=== PATIENT | female | born 1985 | race Caucasian/White ===

== ENCOUNTER 2018-07-31 13:46 | Inpatient (IN) | payer MEDICAID ==
--- NOTE | 2018-07-31 14:31 | EDM.PDOC ---
ED HPI GENERAL MEDICAL PROBLEM - General Chief Complaint: General Stated Complaint: UNK Time Seen by Provider: 07/31/18 14:26 Source of Information: Reports: Provider History Limitations: Reports: No Limitations - History of Present Illness INITIAL COMMENTS - FREE TEXT/NARRATIVE: HISTORY AND PHYSICAL: History of present illness: Patient is a 32-year-old nonverbal female here from [facility] for concern about her not wanting to ambulate. Caregiver states that this morning she got up and walked to breakfast and ate well but when she went to get her for lunch she would not walk at all. She denies any fall or trauma in the interim. She states that she usually eats all of her lunch but today only had a few bites. He did have a mild cough today but no fevers, vomiting, diarrhea. Caregiver states there has been some positive influenza cases in their home. She is not indicating any pain at this time. Review of systems: As per history of present illness and below otherwise all systems reviewed and negative. Past medical history: As per history of present illness and as reviewed below otherwise noncontributory. Surgical history: As per history of present illness and as reviewed below otherwise noncontributory. Social history: No reported history of drug or alcohol abuse. Family history: As per history of present illness and as reviewed below otherwise noncontributory. Physical exam: General: Patient sitting comfortably in no acute distress and nontoxic appearing HEENT: Atraumatic, normocephalic, pupils reactive, negative for conjunctival pallor or scleral icterus, mucous membranes moist, throat clear, neck supple, nontender, trachea midline. No meningeal signs. Lungs: Clear to auscultation, breath sounds equal bilaterally, chest nontender. Heart: S1S2, regular, negative for clicks, rubs, or overt murmur. Abdomen: Soft, nondistended, nontender. Negative for masses or hepatosplenomegaly. Negative for costovertebral tenderness. Pelvis: Stable nontender. Genitourinary: Deferred. Rectal: Deferred. Extremities: Atraumatic, negative for cords or calf pain. Neurovascular unremarkable. Neuro: Awake, alert, oriented. Cranial nerves II through XII unremarkable. Cerebellum unremarkable. Motor and sensory unremarkable throughout. Exam nonfocal. Notes: Diagnostics: CBC, CMP, CXR, influenza, CXR, lactate, blood culture x 2 Therapeutics: 1L Normal Saline IV 750mg Levaquin IV Prescriptions: Impression: Pneumonia Plan: Discussed with Dr. Story, patient will be admitted to inpatient for pneumonia and follow up on blood cultures to r/o sepsis. Definitive disposition and diagnosis as appropriate pending reevaluation and review of above. 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 ED EXAM, GENERAL - Physical Exam Exam: See Below (see dictation) Course - Vital Signs Last Recorded V/S: Last Vital Signs Temp 98.4 F 07/31/18 16:03 Pulse 113 H 07/31/18 16:03 Resp 16 07/31/18 16:03 BP 144/85 H 07/31/18 16:03 Pulse Ox 96 07/31/18 16:03 - Orders/Labs/Meds Orders: Active Orders 24 hr Category Date Time Status Urinary Catheter Assessment [RC] ASDIRECTED Care 07/31/18 15:47 Active Urinary Catheter Insertion [Insert Urinary Catheter] [ Care 07/31/18 15:30 Ordered OM.PC] Stat CULTURE BLOOD [BC] Stat Lab 07/31/18 15:40 Received CULTURE BLOOD [BC] Stat Lab 07/31/18 15:57 Received Levofloxacin/Dextrose 5%-Water [Levaquin in D5W 750 MG/ Med 07/31/18 16:08 Ordered 150 ML] 750 mg Premix Bag 1 bag IV ONETIME Sodium Chloride 0.9% [Normal Saline] 1,000 ml Med 07/31/18 16:08 Ordered IV STAT Blood Culture x2 Reflex Set [OM.PC] Stat Oth 07/31/18 15:09 Ordered Medication Orders Levofloxacin/Dextrose 750 mg/ (Premix) 150 mls @ 100 mls/hr IV ONETIME ONE Stop: 07/31/18 17:37 Sodium Chloride (Normal Saline) 1,000 mls @ 999 mls/hr IV STAT ONE Stop: 07/31/18 17:08 Labs: Laboratory Tests 07/31/18 07/31/18 07/31/18 Range/Units 13:30 14:46 14:46 WBC 20.88 H (4.0-11.0) K/uL RBC 5.02 (4.30-5.90) M/uL Hgb 14.9 (12.0-16.0) g/dL Hct 44.4 (36.0-46.0) % MCV 88.4 (80.0-98.0) fL MCH 29.7 (27.0-32.0) pg MCHC 33.6 (31.0-37.0) g/dL RDW Std Deviation 43.5 (28.0-62.0) fl RDW Coeff of Frank 13 (11.0-15.0) % Plt Count 267 (150-400) K/uL MPV 9.60 (7.40-12.00) fL Neut % (Auto) 88.0 H (48.0-80.0) % Lymph % (Auto) 6.4 L (16.0-40.0) % [place] % (Auto) 5.5 (0.0-15.0) % Eos % (Auto) 0.0 (0.0-7.0) % Baso % (Auto) 0.1 (0.0-1.5) % Neut # (Auto) 18.4 H (1.4-5.7) K/uL Lymph # (Auto) 1.3 (0.6-2.4) K/uL [place] # (Auto) 1.1 H (0.0-0.8) K/uL Eos # (Auto) 0.0 (0.0-0.7) K/uL Baso # (Auto) 0.0 (0.0-0.1) K/uL Nucleated RBC % 0.0 /100WBC Nucleated RBCs # 0 K/uL Lactate (0.20-2.00) mmol/L Sodium 139 (136-145) mmol/L Potassium 3.8 (3.5-5.1) mmol/L Chloride 103 (98-107) mmol/L Carbon Dioxide 24.6 (21.0-32.0) mmol/L BUN 10 (7.0-18.0) mg/dL Creatinine 0.7 (0.6-1.0) mg/dL Est Cr Clr Drug Dosing TNP Estimated GFR (MDRD) > 60.0 ml/min Glucose 136 H (74-106) mg/dL Calcium 9.4 (8.5-10.1) mg/dL Total Bilirubin 0.5 (0.2-1.0) mg/dL AST 20 (15-37) IU/L ALT 29 (14-63) IU/L Alkaline Phosphatase 60 (46-116) U/L Total Protein 7.5 (6.4-8.2) g/dL Albumin 3.4 (3.4-5.0) g/dL Globulin 4.1 H (2.6-4.0) g/dL Albumin/Globulin Ratio 0.8 L (0.9-1.6) Urine Color YELLOW Urine Appearance CLEAR Urine pH 6.0 (5.0-8.0) Ur Specific [place] 1.015 (1.001-1.035) Urine Protein NEGATIVE (NEGATIVE) mg/dL Urine Glucose (UA) NEGATIVE (NEGATIVE) mg/dL Urine Ketones NEGATIVE (NEGATIVE) mg/dL Urine Occult Blood SMALL H (NEGATIVE) Urine Nitrite NEGATIVE (NEGATIVE) Urine Bilirubin NEGATIVE (NEGATIVE) Urine Urobilinogen 0.2 (<2.0) EU/dL Ur Leukocyte Esterase NEGATIVE (NEGATIVE) Urine RBC 2-5 (0-2/HPF) Urine WBC 0-1 (0-5/HPF) Ur Epithelial Cells OCCASIONAL (NONE-FEW) Urine Bacteria FEW (NEGATIVE) 07/31/18 Range/Units 15:40 WBC (4.0-11.0) K/uL RBC (4.30-5.90) M/uL Hgb (12.0-16.0) g/dL Hct (36.0-46.0) % MCV (80.0-98.0) fL MCH (27.0-32.0) pg MCHC (31.0-37.0) g/dL RDW Std Deviation (28.0-62.0) fl RDW Coeff of Frank (11.0-15.0) % Plt Count (150-400) K/uL MPV (7.40-12.00) fL Neut % (Auto) (48.0-80.0) % Lymph % (Auto) (16.0-40.0) % [place] % (Auto) (0.0-15.0) % Eos % (Auto) (0.0-7.0) % Baso % (Auto) (0.0-1.5) % Neut # (Auto) (1.4-5.7) K/uL Lymph # (Auto) (0.6-2.4) K/uL [place] # (Auto) (0.0-0.8) K/uL Eos # (Auto) (0.0-0.7) K/uL Baso # (Auto) (0.0-0.1) K/uL Nucleated RBC % /100WBC Nucleated RBCs # K/uL Lactate 2.1 H (0.20-2.00) mmol/L Sodium (136-145) mmol/L Potassium (3.5-5.1) mmol/L Chloride (98-107) mmol/L Carbon Dioxide (21.0-32.0) mmol/L BUN (7.0-18.0) mg/dL Creatinine (0.6-1.0) mg/dL Est Cr Clr Drug Dosing Estimated GFR (MDRD) ml/min Glucose (74-106) mg/dL Calcium (8.5-10.1) mg/dL Total Bilirubin (0.2-1.0) mg/dL AST (15-37) IU/L ALT (14-63) IU/L Alkaline Phosphatase (46-116) U/L Total Protein (6.4-8.2) g/dL Albumin (3.4-5.0) g/dL Globulin (2.6-4.0) g/dL Albumin/Globulin Ratio (0.9-1.6) Urine Color Urine Appearance Urine pH (5.0-8.0) Ur Specific [place] (1.001-1.035) Urine Protein (NEGATIVE) mg/dL Urine Glucose (UA) (NEGATIVE) mg/dL Urine Ketones (NEGATIVE) mg/dL Urine Occult Blood (NEGATIVE) Urine Nitrite (NEGATIVE) Urine Bilirubin (NEGATIVE) Urine Urobilinogen (<2.0) EU/dL Ur Leukocyte Esterase (NEGATIVE) Urine RBC (0-2/HPF) Urine WBC (0-5/HPF) Ur Epithelial Cells (NONE-FEW) Urine Bacteria (NEGATIVE) Meds: Medications Generic Name Dose Route Start Last Admin Trade Name Freq PRN Reason Stop Dose Admin Levofloxacin/Dextrose 750 mg/ 150 mls @ 100 mls/hr 07/31/18 16:08 Premix IV 07/31/18 17:37 ONETIME ONE Sodium Chloride 1,000 mls @ 999 mls/hr 07/31/18 16:08 Normal Saline IV 07/31/18 17:08 STAT ONE Departure - Departure Time of Disposition: 16:12 Disposition: Home, Self-Care 01 Condition: Good Clinical Impression: Pneumonia - Discharge Information Referrals: PCP,Unknown [Primary Care Provider] - Forms: ED Department Discharge - My Orders Last 24 Hours: My Active Orders 07/31/18 15:09 Blood Culture x2 Reflex Set [OM.PC] Stat 07/31/18 15:30 Urinary Catheter Insertion [Insert Urinary Catheter] [OM.PC] Stat 07/31/18 15:40 CULTURE BLOOD [BC] Stat 07/31/18 15:47 Urinary Catheter Assessment [RC] ASDIRECTED 07/31/18 15:57 CULTURE BLOOD [BC] Stat 07/31/18 16:08 Levofloxacin/Dextrose 5%-Water [Levaquin in D5W 750 MG/150 ML] 750 mg Premix Bag 1 bag IV ONETIME Sodium Chloride 0.9% [Normal Saline] 1,000 ml IV STAT - Assessment/Plan Last 24 Hours: My Active Orders 07/31/18 15:09 Blood Culture x2 Reflex Set [OM.PC] Stat 07/31/18 15:30 Urinary Catheter Insertion [Insert Urinary Catheter] [OM.PC] Stat 07/31/18 15:40 CULTURE BLOOD [BC] Stat 07/31/18 15:47 Urinary Catheter Assessment [RC] ASDIRECTED 07/31/18 15:57 CULTURE BLOOD [BC] Stat 07/31/18 16:08 Levofloxacin/Dextrose 5%-Water [Levaquin in D5W 750 MG/150 ML] 750 mg Premix Bag 1 bag IV ONETIME Sodium Chloride 0.9% [Normal Saline] 1,000 ml IV STAT
--- NOTE | 2018-07-31 15:24 | CR ---
EXAMINATION: Portable chest radiograph. HISTORY: Shortness breath. FINDINGS: The trachea is midline. The cardiomediastinal silhouette is within normal limits. Mild left basilar atelectasis and/or infiltrate. No pleural effusion or pneumothorax. Osseous structures appear unremarkable. IMPRESSION: Mild left basilar atelectasis and/or infiltrate.
[2018-07-31 15:26] LABS: CHLORIDE,CL 103 mmol/L (98-107); SODIUM,NA 139 mmol/L (136-145)
[2018-07-31] MEDS ORDERED: Sodium Chloride 0.9% 1,000 ML IV ONE (16:08)
[2018-07-31] MEDS ORDERED: Levofloxacin/Dextrose 5%-Water 750 MG in Premix Bag 1 BAG IV ONE (16:08)
--- NOTE | 2018-07-31 16:46 | PCM.HP ---
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 This is out of her normal. They also noticed a cough today. No fevers and no indications of pain at all. In the ED leukocytosis of 20,000 was noted with a lactate of 2.1. Tachycardia noted. No hypoxia or hypotension noted. CXR revealed mild left basilar atelectasis and or infiltrate. She was given Levaquin 750 IV and NS 1 L bolus. She will be admitted inpatient for CAP. PCP, Pooja Delgado, [employer] - Related Data Allergies/Adverse Reactions: Allergies Allergy/AdvReac Type Severity Reaction Status Date / Time No Known Allergies Allergy Verified 07/29/14 15:18 Home Medications: Home Meds Ca Carbonate/Vitamin D3/Vit K [Calcium + D Soft Chewable Tab] 1 tab PO DAILY [History] l-Norgest/E.estradion-E.estrad [Daysee 0.15-0.03-0.01 mg Tab] 1 tab PO DAILY [History] Past Medical History HEENT History: Reports: Impaired Vision Cardiovascular History: Reports: None. Denies: CAD, Hypertension, RI Respiratory History: Reports: None. 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 (See Below) Other OB/BYN History: menorrhagia Neurological History: Reports: Seizure Psychiatric History: Reports: Autism, Developmental Delay, Mood Swings - Past Surgical History HEENT Surgical History: Reports: Oral Surgery Social & Family History - Family History Family Medical History: Noncontributory - Tobacco Use Second Hand Smoke Exposure: No - Caffeine Use Caffeine Use: Reports: None - Recreational Drug Use Recreational Drug Use: No - Living Situation & Occupation Living situation: Reports: Extended Care Facility H&P Review of Systems - Review of Systems: Review Of Systems: ROS reveals no pertinent complaints other than HPI. (Given per cargiver) Exam - Exam Exam: See Below - Vital Signs Vital Signs: Last Vital Signs Temp 98.4 F 07/31/18 16:03 Pulse 113 H 07/31/18 16:03 Resp 16 07/31/18 16:03 BP 144/85 H 07/31/18 16:03 Pulse Ox 96 07/31/18 16:03 - Exam Quality Assessment: No: Supplemental Oxygen General: Alert, Cooperative, Other (Non verbal.) HEENT: Conjunctiva Clear, Mucosa Moist & [place], Pupils Reactive Neck: Supple Lungs: Normal Respiratory Effort, Decreased Breath Sounds Cardiovascular: Regular Rate, Regular Rhythm, Normal S1, Normal S2 GI/Abdominal Exam: Normal Bowel Sounds, Soft, Non-Tender, No Organomegaly Extremities: Normal Inspection, Normal Range of Motion, Non-Tender, No Pedal Edema Neuro Extensive - Mental Status: Alert, Normal Mood/Affect Psychiatric: Alert, Normal Affect, Normal Mood - Patient Data Lab Results Last 24 hrs: Laboratory Results - last 24 hr 07/31/18 07/31/18 07/31/18 Range/Units 13:30 14:46 14:46 WBC 20.88 H (4.0-11.0) K/uL RBC 5.02 (4.30-5.90) M/uL Hgb 14.9 (12.0-16.0) g/dL Hct 44.4 (36.0-46.0) % MCV 88.4 (80.0-98.0) fL MCH 29.7 (27.0-32.0) pg MCHC 33.6 (31.0-37.0) g/dL RDW Std Deviation 43.5 (28.0-62.0) fl RDW Coeff of Frank 13 (11.0-15.0) % Plt Count 267 (150-400) K/uL MPV 9.60 (7.40-12.00) fL Neut % (Auto) 88.0 H (48.0-80.0) % Lymph % (Auto) 6.4 L (16.0-40.0) % [place] % (Auto) 5.5 (0.0-15.0) % Eos % (Auto) 0.0 (0.0-7.0) % Baso % (Auto) 0.1 (0.0-1.5) % Neut # (Auto) 18.4 H (1.4-5.7) K/uL Lymph # (Auto) 1.3 (0.6-2.4) K/uL [place] # (Auto) 1.1 H (0.0-0.8) K/uL Eos # (Auto) 0.0 (0.0-0.7) K/uL Baso # (Auto) 0.0 (0.0-0.1) K/uL Nucleated RBC % 0.0 /100WBC Nucleated RBCs # 0 K/uL Lactate (0.20-2.00) mmol/L Sodium 139 (136-145) mmol/L Potassium 3.8 (3.5-5.1) mmol/L Chloride 103 (98-107) mmol/L Carbon Dioxide 24.6 (21.0-32.0) mmol/L BUN 10 (7.0-18.0) mg/dL Creatinine 0.7 (0.6-1.0) mg/dL Est Cr Clr Drug Dosing TNP Estimated GFR (MDRD) > 60.0 ml/min Glucose 136 H (74-106) mg/dL Calcium 9.4 (8.5-10.1) mg/dL Total Bilirubin 0.5 (0.2-1.0) mg/dL AST 20 (15-37) IU/L ALT 29 (14-63) IU/L Alkaline Phosphatase 60 (46-116) U/L Total Protein 7.5 (6.4-8.2) g/dL Albumin 3.4 (3.4-5.0) g/dL Globulin 4.1 H (2.6-4.0) g/dL Albumin/Globulin Ratio 0.8 L (0.9-1.6) Urine Color YELLOW Urine Appearance CLEAR Urine pH 6.0 (5.0-8.0) Ur Specific [place] 1.015 (1.001-1.035) Urine Protein NEGATIVE (NEGATIVE) mg/dL Urine Glucose (UA) NEGATIVE (NEGATIVE) mg/dL Urine Ketones NEGATIVE (NEGATIVE) mg/dL Urine Occult Blood SMALL H (NEGATIVE) Urine Nitrite NEGATIVE (NEGATIVE) Urine Bilirubin NEGATIVE (NEGATIVE) Urine Urobilinogen 0.2 (<2.0) EU/dL Ur Leukocyte Esterase NEGATIVE (NEGATIVE) Urine RBC 2-5 (0-2/HPF) Urine WBC 0-1 (0-5/HPF) Ur Epithelial Cells OCCASIONAL (NONE-FEW) Urine Bacteria FEW (NEGATIVE) 07/31/18 Range/Units 15:40 WBC (4.0-11.0) K/uL RBC (4.30-5.90) M/uL Hgb (12.0-16.0) g/dL Hct (36.0-46.0) % MCV (80.0-98.0) fL MCH (27.0-32.0) pg MCHC (31.0-37.0) g/dL RDW Std Deviation (28.0-62.0) fl RDW Coeff of Frank (11.0-15.0) % Plt Count (150-400) K/uL MPV (7.40-12.00) fL Neut % (Auto) (48.0-80.0) % Lymph % (Auto) (16.0-40.0) % [place] % (Auto) (0.0-15.0) % Eos % (Auto) (0.0-7.0) % Baso % (Auto) (0.0-1.5) % Neut # (Auto) (1.4-5.7) K/uL Lymph # (Auto) (0.6-2.4) K/uL [place] # (Auto) (0.0-0.8) K/uL Eos # (Auto) (0.0-0.7) K/uL Baso # (Auto) (0.0-0.1) K/uL Nucleated RBC % /100WBC Nucleated RBCs # K/uL Lactate 2.1 H (0.20-2.00) mmol/L Sodium (136-145) mmol/L Potassium (3.5-5.1) mmol/L Chloride (98-107) mmol/L Carbon Dioxide (21.0-32.0) mmol/L BUN (7.0-18.0) mg/dL Creatinine (0.6-1.0) mg/dL Est Cr Clr Drug Dosing Estimated GFR (MDRD) ml/min Glucose (74-106) mg/dL Calcium (8.5-10.1) mg/dL Total Bilirubin (0.2-1.0) mg/dL AST (15-37) IU/L ALT (14-63) IU/L Alkaline Phosphatase (46-116) U/L Total Protein (6.4-8.2) g/dL Albumin (3.4-5.0) g/dL Globulin (2.6-4.0) g/dL Albumin/Globulin Ratio (0.9-1.6) Urine Color Urine Appearance Urine pH (5.0-8.0) Ur Specific [place] (1.001-1.035) Urine Protein (NEGATIVE) mg/dL Urine Glucose (UA) (NEGATIVE) mg/dL Urine Ketones (NEGATIVE) mg/dL Urine Occult Blood (NEGATIVE) Urine Nitrite (NEGATIVE) Urine Bilirubin (NEGATIVE) Urine Urobilinogen (<2.0) EU/dL Ur Leukocyte Esterase (NEGATIVE) Urine RBC (0-2/HPF) Urine WBC (0-5/HPF) Ur Epithelial Cells (NONE-FEW) Urine Bacteria (NEGATIVE) Result Diagrams: 07/31/18 14:46 07/31/18 14:46 Ryan Results Last 24 hrs: Microbiology 07/31/18 14:42 Influenza Type A Antigen Screen - Final Nasopharyngeal Swab NEGATIVE INFLUENZA A VIRUS AG Influenza Type B Antigen Screen - Final NEGATIVE INFLUENZA B VIRUS AG - Problem List (1) Community acquired bacterial pneumonia SNOMED Code(s): 785524747, 486143177 ICD Code: J15.9 - UNSPECIFIED BACTERIAL PNEUMONIA Status: Acute Current Visit: Yes (2) Seizure disorder SNOMED Code(s): 278081131 ICD Code: G40.909 - EPILEPSY, UNSP, NOT INTRACTABLE, WITHOUT STATUS EPILEPTICUS Status: Chronic Current Visit: Yes (3) Autism SNOMED Code(s): 527420075 ICD Code: F84.0 - AUTISTIC DISORDER Status: Chronic Current Visit: Yes (4) Cerebral palsy SNOMED Code(s): 165231292 ICD Code: G80.9 - CEREBRAL PALSY, UNSPECIFIED Status: Chronic Current Visit: Yes Problem List Initiated/Reviewed/Updated: Yes Orders Last 24hrs: Active Orders 24 hr Category Date Time Status Admission Status [Patient Status] [ADT] Stat ADT 07/31/18 16:13 Active Urinary Catheter Assessment [RC] ASDIRECTED Care 07/31/18 15:47 Active Urinary Catheter Insertion [Insert Urinary Catheter] [ Care 07/31/18 15:30 Ordered OM.PC] Stat CULTURE BLOOD [BC] Stat Lab 07/31/18 15:40 Received CULTURE BLOOD [BC] Stat Lab 07/31/18 15:57 Received Levofloxacin/Dextrose 5%-Water [Levaquin in D5W 750 MG/ Med 07/31/18 16:08 Active 150 ML] 750 mg Premix Bag 1 bag IV ONETIME Sodium Chloride 0.9% [Normal Saline] 1,000 ml Med 07/31/18 16:08 Active IV STAT Blood Culture x2 Reflex Set [OM.PC] Stat Oth 07/31/18 15:09 Ordered Medication Orders Levofloxacin/Dextrose 750 mg/ (Premix) 150 mls @ 100 mls/hr IV ONETIME ONE Stop: 07/31/18 17:37 Sodium Chloride (Normal Saline) 1,000 mls @ 999 mls/hr IV STAT ONE Stop: 07/31/18 17:08 Assessment/Plan Comment:: This 32 year old female admitted for community acquired pneumonia 1. CAP: Will start Levaquin 750 mg IV daily, Continue IVFs due to elevated lactic acid and poor appetite. Re-evaluate in am. BC and sputum culture pending. Sputum may be hard to acquire due to mental capability of patient. Caregiver denies productive cough. Monitor labwork in am. VTE prophylaxis: SCDs Dispo: 2-3 days pending improvement Contacts: [facility]: [phone] Twan Parnell [phone] Dad: Lucian Bravo [phone]
[2018-07-31] MEDS ORDERED: Sodium Chloride 0.9% 2.5 ML Syringe FLUSH PRN (16:56)
[2018-07-31] MEDS ORDERED: Acetaminophen 325 MG Tab PO PRN (16:56)
[2018-07-31] MEDS ORDERED: Ondansetron 4 MG/2 ML SDV IVPUSH PRN (16:56)
[2018-07-31] MEDS ORDERED: Albuterol 0.083% 2.5 MG/3 ML Neb Soln NEB PRN (16:56)
--- NOTE | 2018-07-31 17:59 | PCM.SN ---
- Free Text/Narrative Note: Called to the ER for PIV as nursing has been unsuccessful. 2 attempts to left AC and 1 attempt to Lt hand were unsuccessful bu me. 22g PIV was started to Rt wrist, draws blood and flushes with ease. Secured with tape and tegaderm. Pt tolerated placement well.
[2018-07-31] MEDS: Sodium Chloride 0.9% 1,000 ML IV SCH (19:20)
[2018-08-01] MEDS: Sodium Chloride 0.9% 1,000 ML IV SCH ×2 (02:31→09:50)
[2018-08-01] MEDS ORDERED: Calcium Carbonate/Vitamin D3 1500 MG-400 Units Tab PO SCH (09:00)
[2018-08-01] MEDS ORDERED: DAYSEE PO SCH (09:00)
[2018-08-01 09:30] LABS: CHLORIDE,CL 103 mmol/L (98-107); SODIUM,NA 135 mmol/L (136-145)
--- NOTE | 2018-08-01 10:57 | PCM.DCSUM1 ---
Discharge Summary - Hospital Course Brief History: This 32 year old female with pmh of moderate mental retardation, Austism, CP and seizure disorder, who is non verbal presented with a dog day care attendant from [facility], [place], she started her day out normal, but then was noted to have difficulty walking and did not want to eat her lunch. This is out of her normal. They also noticed a cough today. No fevers and no indications of pain at all. In the ED leukocytosis of 20,000 was noted with a lactate of 2.1. Tachycardia noted. No hypoxia or hypotension noted. CXR revealed mild left basilar atelectasis and or infiltrate. She was given Levaquin 750 IV and NS 1 L bolus. She will be admitted inpatient for CAP. PCP, Pooja Delgado NP Diagnosis: Stroke: No - Discharge Data Discharge Date: 08/01/18 Discharge Disposition: DC/Tfer to [facility] Condition: Stable - Discharge Diagnosis/Problem(s) (1) Community acquired bacterial pneumonia SNOMED Code(s): 144198256, 258206217 ICD Code: J15.9 - UNSPECIFIED BACTERIAL PNEUMONIA Status: Acute Current Visit: Yes (2) Seizure disorder SNOMED Code(s): 128441416 ICD Code: G40.909 - EPILEPSY, UNSP, NOT INTRACTABLE, WITHOUT STATUS EPILEPTICUS Status: Chronic Current Visit: Yes (3) Autism SNOMED Code(s): 132536004 ICD Code: F84.0 - AUTISTIC DISORDER Status: Chronic Current Visit: Yes (4) Cerebral palsy SNOMED Code(s): 757237750 ICD Code: G80.9 - CEREBRAL PALSY, UNSPECIFIED Status: Chronic Current Visit: Yes - Patient Summary/Data Consults: Consultations 08/01/18 09:17 Consult to Physical Therapy [PT Evaluation and Treatment] [CONS] Routine - Patient Instructions Diet: Usual Diet as Tolerated Activity: As Tolerated Showering/Bathing: May Shower Notify Provider of: Fever, Increased Pain, Swelling and Redness, Drainage, Nausea and/or Vomiting - Discharge Plan *PRESCRIPTION DRUG MONITORING PROGRAM REVIEWED*: Not Applicable *COPY OF PRESCRIPTION DRUG MONITORING REPORT IN PATIENT KYM: Not Applicable Prescriptions/Med Rec: levoFLOXacin [Levaquin] 750 mg PO DAILY #7 tab Home Medications: Home Meds Ca Carbonate/Vitamin D3/Vit K [Calcium + D Soft Chewable Tab] 1 tab PO DAILY 02/ 26/19 [History] l-Norgest/E.estradion-E.estrad [Daysee 0.15-0.03-0.01 mg Tab] 1 tab PO DAILY [History] levoFLOXacin [Levaquin] 750 mg PO DAILY #7 tab 08/01/18 [Rx] Patient Handouts: Community-Acquired Pneumonia, Adult, [id number] Referrals: Pooja Delgado, NIGHT [employer] MAGISTRATE [Nurse Practitioner] - 08/13/18 1:00 pm - Discharge Summary/Plan Comment DC Time >30 min.: No Discharge Summary/Plan Comment: Discharge Diagnoses: CAP Cerebal palsy Seizure disorder Non-verbal Mary was admitted with CAP and treated with Levaquin and IVFs for some dehydration. lactic acid was elevated initially, unable to check within 6 hours due to parental request to stop any more labwork last evening. This morning after IVF hydration, lactic acid was normal on 0.6. Leukocytosis improved to 11, 000. BMP WNL. She is alert and at baseline this morning. She ate breakfast well and was ambulating with PT independently and PT felt it was safe for her to return home. Her father, Lucian, requested discharge today due to his daughter potential behaviors and how she would rest better being back at the [facility] where she is used to her surroundings. She will be continued on Levaquin 750 mg daily for 7 more days for CAP. She is to follow up with PCP in 1 week. She is to return to clinic or ED if concerns should arise sooner. - General Info Date of Service: 08/01/18 Admission Dx/Problem (Free Text: Admission Diagnosis/Problem Admission Diagnosis/Problem Pneumonia Subjective Update: Sitting in bed, father at bedside. Reports she is acting more her normal self today. Requesting discharge home. Unable to obtain ROS, patient is non verbal. - Patient Data Vitals - Most Recent: Last Vital Signs Temp 98.5 F 08/01/18 07:10 Pulse 106 H 08/01/18 07:10 Resp 18 08/01/18 07:10 BP 134/100 H 08/01/18 07:10 Pulse Ox 95 08/01/18 07:10 Weight - Most Recent: 83.5 kg I&O - Last 24 hours: Intake & Output 07/31/18 08/01/1808/01/19 22:59 06:59 14:59 Intake Total 100 Balance 100 Lab Results - Last 24 hrs: Laboratory Results - last 24 hr 07/31/18 07/31/18 07/31/18 Range/Units 13:30 14:46 14:46 WBC 20.88 H (4.0-11.0) K/uL RBC 5.02 (4.30-5.90) M/uL Hgb 14.9 (12.0-16.0) g/dL Hct 44.4 (36.0-46.0) % MCV 88.4 (80.0-98.0) fL MCH 29.7 (27.0-32.0) pg MCHC 33.6 (31.0-37.0) g/dL RDW Std Deviation 43.5 (28.0-62.0) fl RDW Coeff of Frank 13 (11.0-15.0) % Plt Count 267 (150-400) K/uL MPV 9.60 (7.40-12.00) fL Neut % (Auto) 88.0 H (48.0-80.0) % Lymph % (Auto) 6.4 L (16.0-40.0) % [place] % (Auto) 5.5 (0.0-15.0) % Eos % (Auto) 0.0 (0.0-7.0) % Baso % (Auto) 0.1 (0.0-1.5) % Neut # (Auto) 18.4 H (1.4-5.7) K/uL Lymph # (Auto) 1.3 (0.6-2.4) K/uL [place] # (Auto) 1.1 H (0.0-0.8) K/uL Eos # (Auto) 0.0 (0.0-0.7) K/uL Baso # (Auto) 0.0 (0.0-0.1) K/uL Nucleated RBC % 0.0 /100WBC Nucleated RBCs # 0 K/uL Lactate (0.20-2.00) mmol/L Sodium 139 (136-145) mmol/L Potassium 3.8 (3.5-5.1) mmol/L Chloride 103 (98-107) mmol/L Carbon Dioxide 24.6 (21.0-32.0) mmol/L BUN 10 (7.0-18.0) mg/dL Creatinine 0.7 (0.6-1.0) mg/dL Est Cr Clr Drug Dosing TNP Estimated GFR (MDRD) > 60.0 ml/min Glucose 136 H (74-106) mg/dL Calcium 9.4 (8.5-10.1) mg/dL Total Bilirubin 0.5 (0.2-1.0) mg/dL AST 20 (15-37) IU/L ALT 29 (14-63) IU/L Alkaline Phosphatase 60 (46-116) U/L Total Protein 7.5 (6.4-8.2) g/dL Albumin 3.4 (3.4-5.0) g/dL Globulin 4.1 H (2.6-4.0) g/dL Albumin/Globulin Ratio 0.8 L (0.9-1.6) Urine Color YELLOW Urine Appearance CLEAR Urine pH 6.0 (5.0-8.0) Ur Specific Chandler 1.015 (1.001-1.035) Urine Protein NEGATIVE (NEGATIVE) mg/dL Urine Glucose (UA) NEGATIVE (NEGATIVE) mg/dL Urine Ketones NEGATIVE (NEGATIVE) mg/dL Urine Occult Blood SMALL H (NEGATIVE) Urine Nitrite NEGATIVE (NEGATIVE) Urine Bilirubin NEGATIVE (NEGATIVE) Urine Urobilinogen 0.2 (<2.0) EU/dL Ur Leukocyte Esterase NEGATIVE (NEGATIVE) Urine RBC 2-5 (0-2/HPF) Urine WBC 0-1 (0-5/HPF) Ur Epithelial Cells OCCASIONAL (NONE-FEW) Urine Bacteria FEW (NEGATIVE) 07/31/18 08/01/18 08/01/18 Range/Units 15:40 08:52 08:52 WBC 11.49 H (4.0-11.0) K/uL RBC 4.53 (4.30-5.90) M/uL Hgb 13.2 (12.0-16.0) g/dL Hct 40.0 (36.0-46.0) % MCV 88.3 (80.0-98.0) fL MCH 29.1 (27.0-32.0) pg MCHC 33.0 (31.0-37.0) g/dL RDW Std Deviation 42.4 (28.0-62.0) fl RDW Coeff of Frank 13 (11.0-15.0) % Plt Count 240 (150-400) K/uL MPV 9.50 (7.40-12.00) fL Neut % (Auto) 81.2 H (48.0-80.0) % Lymph % (Auto) 14.9 L (16.0-40.0) % [place] % (Auto) 3.7 (0.0-15.0) % Eos % (Auto) 0.0 (0.0-7.0) % Baso % (Auto) 0.2 (0.0-1.5) % Neut # (Auto) 9.3 H (1.4-5.7) K/uL Lymph # (Auto) 1.7 (0.6-2.4) K/uL [place] # (Auto) 0.4 (0.0-0.8) K/uL Eos # (Auto) 0.0 (0.0-0.7) K/uL Baso # (Auto) 0.0 (0.0-0.1) K/uL Nucleated RBC % 0.0 /100WBC Nucleated RBCs # 0 K/uL Lactate 2.1 H (0.20-2.00) mmol/L Sodium 135 L (136-145) mmol/L Potassium 3.6 (3.5-5.1) mmol/L Chloride 103 (98-107) mmol/L Carbon Dioxide 19.2 L (21.0-32.0) mmol/L BUN 5 L (7.0-18.0) mg/dL Creatinine 0.5 L (0.6-1.0) mg/dL Est Cr Clr Drug Dosing 154.17 Estimated GFR (MDRD) > 60.0 ml/min Glucose 79 (74-106) mg/dL Calcium 8.0 L (8.5-10.1) mg/dL Total Bilirubin (0.2-1.0) mg/dL AST (15-37) IU/L ALT (14-63) IU/L Alkaline Phosphatase (46-116) U/L Total Protein (6.4-8.2) g/dL Albumin (3.4-5.0) g/dL Globulin (2.6-4.0) g/dL Albumin/Globulin Ratio (0.9-1.6) Urine Color Urine Appearance Urine pH (5.0-8.0) Ur Specific Chandler (1.001-1.035) Urine Protein (NEGATIVE) mg/dL Urine Glucose (UA) (NEGATIVE) mg/dL Urine Ketones (NEGATIVE) mg/dL Urine Occult Blood (NEGATIVE) Urine Nitrite (NEGATIVE) Urine Bilirubin (NEGATIVE) Urine Urobilinogen (<2.0) EU/dL Ur Leukocyte Esterase (NEGATIVE) Urine RBC (0-2/HPF) Urine WBC (0-5/HPF) Ur Epithelial Cells (NONE-FEW) Urine Bacteria (NEGATIVE) 08/01/18 Range/Units 08:52 WBC (4.0-11.0) K/uL RBC (4.30-5.90) M/uL Hgb (12.0-16.0) g/dL Hct (36.0-46.0) % MCV (80.0-98.0) fL MCH (27.0-32.0) pg MCHC (31.0-37.0) g/dL RDW Std Deviation (28.0-62.0) fl RDW Coeff of Frank (11.0-15.0) % Plt Count (150-400) K/uL MPV (7.40-12.00) fL Neut % (Auto) (48.0-80.0) % Lymph % (Auto) (16.0-40.0) % [place] % (Auto) (0.0-15.0) % Eos % (Auto) (0.0-7.0) % Baso % (Auto) (0.0-1.5) % Neut # (Auto) (1.4-5.7) K/uL Lymph # (Auto) (0.6-2.4) K/uL [place] # (Auto) (0.0-0.8) K/uL Eos # (Auto) (0.0-0.7) K/uL Baso # (Auto) (0.0-0.1) K/uL Nucleated RBC % /100WBC Nucleated RBCs # K/uL Lactate 0.6 (0.20-2.00) mmol/L Sodium (136-145) mmol/L Potassium (3.5-5.1) mmol/L Chloride (98-107) mmol/L Carbon Dioxide (21.0-32.0) mmol/L BUN (7.0-18.0) mg/dL Creatinine (0.6-1.0) mg/dL Est Cr Clr Drug Dosing Estimated GFR (MDRD) ml/min Glucose (74-106) mg/dL Calcium (8.5-10.1) mg/dL Total Bilirubin (0.2-1.0) mg/dL AST (15-37) IU/L ALT (14-63) IU/L Alkaline Phosphatase (46-116) U/L Total Protein (6.4-8.2) g/dL Albumin (3.4-5.0) g/dL Globulin (2.6-4.0) g/dL Albumin/Globulin Ratio (0.9-1.6) Urine Color Urine Appearance Urine pH (5.0-8.0) Ur Specific Chandler (1.001-1.035) Urine Protein (NEGATIVE) mg/dL Urine Glucose (UA) (NEGATIVE) mg/dL Urine Ketones (NEGATIVE) mg/dL Urine Occult Blood (NEGATIVE) Urine Nitrite (NEGATIVE) Urine Bilirubin (NEGATIVE) Urine Urobilinogen (<2.0) EU/dL Ur Leukocyte Esterase (NEGATIVE) Urine RBC (0-2/HPF) Urine WBC (0-5/HPF) Ur Epithelial Cells (NONE-FEW) Urine Bacteria (NEGATIVE) NOBLE Results - Last 24 hrs: Microbiology 07/31/18 14:42 Influenza Type A Antigen Screen - Final Nasopharyngeal Swab NEGATIVE INFLUENZA A VIRUS AG Influenza Type B Antigen Screen - Final NEGATIVE INFLUENZA B VIRUS AG Med Orders - Current: Current Medications Acetaminophen (Tylenol) 650 mg PO Q4H PRN PRN Reason: Pain (mild 1-3) Albuterol (Proventil Neb Soln) 2.5 mg NEB Q2H PRN PRN Reason: Shortness Of Breath/wheezing Calcium Carbonate (Caltrate 600+D 1500 Mg-400 Units) 1 tab PO DAILY TI Last Admin: 08/01/18 08:19 Dose: 1 tab Levofloxacin/Dextrose 750 mg/ (Premix) 150 mls @ 100 mls/hr IV Q24H TI Sodium Chloride (Normal Saline) 1,000 mls @ 125 mls/hr IV ASDIRECTED TI Last Admin: 08/01/18 09:50 Dose: 125 mls/hr Ondansetron HCl (Zofran) 4 mg IVPUSH Q4H PRN PRN Reason: Nausea [Daysee 0.15-0.03-0. (01 Mg]) 1 each PO DAILY TI Last Admin: 08/01/18 08:19 Dose: Not Given Sodium Chloride (Saline Flush) 2.5 ml FLUSH ASDIRECTED PRN PRN Reason: Keep Vein Open Discontinued Medications Levofloxacin/Dextrose 750 mg/ (Premix) 150 mls @ 100 mls/hr IV ONETIME ONE Stop: 07/31/18 17:37 Last Admin: 07/31/18 17:09 Dose: 100 mls/hr Sodium Chloride (Normal Saline) 1,000 mls @ 999 mls/hr IV STAT ONE Stop: 07/31/18 17:08 Last Admin: 07/31/18 17:09 Dose: 999 mls/hr - Exam Quality Assessment: Denies: Supplemental Oxygen General: Reports: Alert, Cooperative, No Acute Distress Neck: Reports: Supple Lungs: Reports: Clear to Auscultation, Normal Respiratory Effort Cardiovascular: Reports: Regular Rate, Regular Rhythm GI/Abdominal Exam: Normal Bowel Sounds, Soft, Non-Tender, No Organomegaly, No Distention Extremities: Normal Inspection, Normal Range of Motion, Non-Tender, Pedal Edema (non pitting +1) Neurological: Reports: No New Focal Deficit Psy/Mental Status: Reports: Alert, Normal Affect, Normal Mood
[2018-08-01] MEDS ORDERED: Levofloxacin/Dextrose 5%-Water 750 MG in Premix Bag 1 BAG IV SCH (12:00)
== END 2018-08-01 13:10 | DRG 194 ==
LOC: MW.ED 13:46 → MW.MS 16:54
PROVIDERS: ADMIT Internal Medicine; ATTEND Internal Medicine
DX: J18.9 Pneumonia, unspecified organism (principal); J15.9 Unspecified bacterial pneumonia; F84.0 Autistic disorder; G80.9 Cerebral palsy, unspecified; G40.909 Epilepsy, unspecified, not intractable, without status epilepticus; R62.50 Unspecified lack of expected normal physiological development in childhood; F70 Mild intellectual disabilities; F39 Unspecified mood [affective] disorder; E86.0 Dehydration; R32 Unspecified urinary incontinence; K59.09 Other constipation; H54.7 Unspecified visual loss; Z79.899 Other long term (current) drug therapy
CPT/HCPCS: 36410; 36415; 71045; 71045-26; 80048; 80053; 81001; 83605; 85025; 87040; 87804; 96365; 97161-GP; 99285-25; A9270-GY; J1956; J7040

== ENCOUNTER 2019-06-10 18:47 | Emergency (ER) | payer MEDICAID ==
[2019-06-10] MEDS ORDERED: Rocuronium 100 MG/10 ML MDV ONE (18:48)
[2019-06-10] MEDS ORDERED: Albuterol/Ipratropium 3.0-0.5 MG/3 ML Neb Soln ONE (19:10)
[2019-06-10] MEDS ORDERED: LORazepam 2 MG/ML SDV ONE (19:13)
[2019-06-10] MEDS ORDERED: Midazolam 1 MG/ML 2 ML SDV ONE (19:18)
[2019-06-10] MEDS ORDERED: propofoL 100 ML ONE (19:25)
[2019-06-10] MEDS ORDERED: Midazolam 5 MG/ML SDV IVPUSH ONE (19:44)
[2019-06-10 19:51] LABS: BLOOD UREA NITROGEN,BUN 14 mg/dL (7.0-18.0); CARBON DIOXIDE,CO2 22.4 mmol/L (21.0-32.0); CHLORIDE,CL 98 mmol/L (98-107); GLUCOSE RANDOM 170 mg/dL (74-106); POTASSIUM,K 3.8 mmol/L (3.5-5.1); SODIUM,NA 138 mmol/L (136-145)
--- NOTE | 2019-06-10 19:54 | EDM.PDOC ---
ED HPI GENERAL MEDICAL PROBLEM - General Chief Complaint: Drug or Alcohol Abuse Stated Complaint: SWALLOWED DISINFECTANT Time Seen by Provider: 06/10/19 19:04 Source of Information: Reports: Provider History Limitations: Reports: No Limitations - History of Present Illness INITIAL COMMENTS - FREE TEXT/NARRATIVE: 33-year-old female presents emergency room with a chief complaint of swelling and some generalized Clorox latrine cleaner and developing shortness of breath. She is oxygen saturation is down to 80% in the ER and she was fighting attempts to get oxygen on her. Will be intubated to protect her airway and is moved into another room at this time Onset: Today Duration: Hour(s):, Getting Worse Location: Reports: Chest Quality: Reports: Burning Severity: Severe Improves with: Reports: None Worsens with: Reports: None Associated Symptoms: Reports: No Other Symptoms, Confusion, cough w sputum, Nausea/Vomiting - Related Data Allergies Allergy/AdvReac Type Severity Reaction Status Date / Time No Known Allergies Allergy Verified 06/10/19 19:05 Home Meds: Home Meds Calcium Carb/Vitamin D3/Vit K1 [Calcium + D Soft Chewable Tab] 1 tab PO DAILY [History] l-Norgest/E.estradion-E.estrad [Daysee 0.15-0.03-0.01 mg Tab] 1 tab PO DAILY [History] levoFLOXacin [Levaquin] 750 mg PO DAILY #7 tab 08/01/18 [Rx] Past Medical History HEENT History: Reports: Impaired Vision Cardiovascular History: Reports: None Respiratory History: Reports: None Gastrointestinal History: Reports: Chronic Constipation Genitourinary History: Reports: Urinary Incontinence, UTI, Recurrent BOLT SAWYER History: Reports: Other (See Below) Other BOLT SAWYER History: menorrhagia Neurological History: Reports: Seizure Psychiatric History: Reports: Autism, Developmental Delay, Mood Swings - Past Surgical History HEENT Surgical History: Reports: Oral Surgery Social & Family History - Family History Family Medical History: Noncontributory - Caffeine Use Caffeine Use: Reports: Coffee - Living Situation & Occupation Living situation: Reports: Extended Care Facility ED ROS GENERAL - Review of Systems Review Of Systems: Comprehensive ROS is negative, except as noted in HPI. Constitutional: Reports: No Symptoms HEENT: Reports: No Symptoms Respiratory: Reports: Shortness of Breath, Cough Cardiovascular: Reports: No Symptoms Endocrine: Reports: No Symptoms GI/Abdominal: Reports: Nausea, Vomiting : Reports: No Symptoms Musculoskeletal: Reports: No Symptoms Skin: Reports: No Symptoms Neurological: Reports: No Symptoms Psychiatric: Reports: No Symptoms, Agitation, Anxiety Hematologic/Lymphatic: Reports: No Symptoms Immunologic: Reports: No Symptoms - Physical Exam Exam: Not Obtained Text/Narrative:: 33-year-old female with difficulty breathing. She is having increased respiratory rate and wheezing throughout. Patient having decreased airway and been struggling patient in respiratory distress will need to the patient immediately Exam Limited By: Physical Impairment General Appearance: Anxious, Severe Distress Eye Exam: Bilateral Eye: PERRL Ears: Normal External Exam, Normal Canal, Hearing Grossly Normal Nose: Normal Inspection, Normal Mucosa Throat/Mouth: Normal Inspection, Normal Lips, Normal Teeth, Normal Oropharynx, Normal Voice Head Exam: Atraumatic Neck: Normal Inspection Respiratory/Chest: Respiratory Distress, Stridor, Accessory Muscle Use, Retractions Cardiovascular: Normal Peripheral Pulses, Regular Rate, Rhythm, No Edema, No Gallop, No JVD (Female) Exam: Deferred Rectal (Female) Exam: Normal Exam, Deferred Neuro Exam (Abbreviated): Alert, Normal Reflexes Back Exam: Normal Inspection, Full Range of Motion Extremities: Normal Inspection, Normal Range of Motion Psychiatric: Normal Affect, Normal Mood Skin Exam: Warm, Dry, Intact, Normal Color Course - Vital Signs Text/Narrative:: 3-year-old female presents emergency room deep difficulty breathing. Patient found to have probable aspiration of ingested products. Patient is developmentally delayed and very hard to restraint. Patient was intubated to protect her airway. 100 mg of sucks with 2 Versed. Patient was started on Pavulon intubation was done 1 time size 7.5 good capnometry good breath sounds bilaterally. Patient will be transferred to high-level care. Patient's oxygenation went from 80 to 96%. Patient's blood pressure and pulse were fine. Discussed case with Dr. Wallace and marilu who will ask who is accepted the patient. At this time flight is here to take the patient. Given additional rocuronium patient. Exam: Breath sounds are good. Chest normal S1-S2 Lungs: Patient wheezing throughout. Extremities are normal. Has been Catheter has been placed for critical patient - Orders/Labs/Meds Orders: Active Orders 24 hr Category Date Time Status DRUG SCREEN, URINE [URCHEM] Stat Lab 06/10/19 19:40 Ordered HCG QUALITATIVE,URINE [URCHEM] Stat Lab 06/10/19 19:40 Ordered UA RFX NOBLE AND CULT IF INDIC [URIN] Stat Lab 06/10/19 19:45 Ordered Labs: Laboratory Tests 06/10/19 06/10/19 06/10/19 Range/Units 19:08 19:08 19:08 WBC 19.52 H (4.0-11.0) K/uL RBC 5.70 (4.30-5.90) M/uL Hgb 17.2 H (12.0-16.0) g/dL Hct 51.6 H (36.0-46.0) % MCV 90.5 (80.0-98.0) fL MCH 30.2 (27.0-32.0) pg MCHC 33.3 (31.0-37.0) g/dL RDW Std Deviation 45.2 (28.0-62.0) fl RDW Coeff of Frank 14 (11.0-15.0) % Plt Count 290 (150-400) K/uL MPV 10.40 (7.40-12.00) fL Neut % (Auto) 87.0 H (48.0-80.0) % Lymph % (Auto) 7.8 L (16.0-40.0) % [place] % (Auto) 5.0 (0.0-15.0) % Eos % (Auto) 0.0 (0.0-7.0) % Baso % (Auto) 0.2 (0.0-1.5) % Neut # (Auto) 17.0 H (1.4-5.7) K/uL Lymph # (Auto) 1.5 (0.6-2.4) K/uL [place] # (Auto) 1.0 H (0.0-0.8) K/uL Eos # (Auto) 0.0 (0.0-0.7) K/uL Baso # (Auto) 0.0 (0.0-0.1) K/uL Nucleated RBC % 0.0 /100WBC Nucleated RBCs # 0 K/uL Lactate 2.9 H* (0.20-2.00) mmol/L Sodium 138 (136-145) mmol/L Potassium 3.8 (3.5-5.1) mmol/L Chloride 98 (98-107) mmol/L Carbon Dioxide 22.4 (21.0-32.0) mmol/L BUN 14 (7.0-18.0) mg/dL Creatinine 1.1 H (0.6-1.0) mg/dL Est Cr Clr Drug Dosing TNP Estimated GFR (MDRD) 56.5 ml/min Glucose 170 H (74-106) mg/dL POC Glucose (60-110) mg/dL Calcium 9.2 (8.5-10.1) mg/dL Total Bilirubin 0.3 (0.2-1.0) mg/dL AST 48 H (15-37) IU/L ALT 43 (14-63) IU/L Alkaline Phosphatase 70 (46-116) U/L Total Protein 9.5 H (6.4-8.2) g/dL Albumin 4.5 (3.4-5.0) g/dL Globulin 5.0 H (2.6-4.0) g/dL Albumin/Globulin Ratio 0.9 (0.9-1.6) 06/10/19 Range/Units 19:09 WBC (4.0-11.0) K/uL RBC (4.30-5.90) M/uL Hgb (12.0-16.0) g/dL Hct (36.0-46.0) % MCV (80.0-98.0) fL MCH (27.0-32.0) pg MCHC (31.0-37.0) g/dL RDW Std Deviation (28.0-62.0) fl RDW Coeff of Frank (11.0-15.0) % Plt Count (150-400) K/uL MPV (7.40-12.00) fL Neut % (Auto) (48.0-80.0) % Lymph % (Auto) (16.0-40.0) % [place] % (Auto) (0.0-15.0) % Eos % (Auto) (0.0-7.0) % Baso % (Auto) (0.0-1.5) % Neut # (Auto) (1.4-5.7) K/uL Lymph # (Auto) (0.6-2.4) K/uL [place] # (Auto) (0.0-0.8) K/uL Eos # (Auto) (0.0-0.7) K/uL Baso # (Auto) (0.0-0.1) K/uL Nucleated RBC % /100WBC Nucleated RBCs # K/uL Lactate (0.20-2.00) mmol/L Sodium (136-145) mmol/L Potassium (3.5-5.1) mmol/L Chloride (98-107) mmol/L Carbon Dioxide (21.0-32.0) mmol/L BUN (7.0-18.0) mg/dL Creatinine (0.6-1.0) mg/dL Est Cr Clr Drug Dosing Estimated GFR (MDRD) ml/min Glucose (74-106) mg/dL POC Glucose 168 H (60-110) mg/dL Calcium (8.5-10.1) mg/dL Total Bilirubin (0.2-1.0) mg/dL AST (15-37) IU/L ALT (14-63) IU/L Alkaline Phosphatase (46-116) U/L Total Protein (6.4-8.2) g/dL Albumin (3.4-5.0) g/dL Globulin (2.6-4.0) g/dL Albumin/Globulin Ratio (0.9-1.6) Meds: Medications Discontinued Medications Generic Name Dose Route Start Last Admin Trade Name Freq PRN Reason Stop Dose Admin Albuterol/Ipratropium Confirm 06/10/19 19:10 Duoneb 3.0-0.5 Mg/3 Ml Administered 06/10/19 19:11 Dose 3 ml .ROUTE .STK-MED ONE Propofol Confirm 06/10/19 19:25 Diprivan 100 Ml Administered 06/10/19 19:26 Dose 100 mls @ as directed .ROUTE .STK-MED ONE Lorazepam Confirm 06/10/19 19:13 Ativan Administered 06/10/19 19:14 Dose 2 mg .ROUTE .STK-MED ONE Midazolam HCl Confirm 06/10/19 19:18 Versed 1 Mg/Ml Administered 06/10/19 19:19 Dose 2 mg .ROUTE .STK-MED ONE Midazolam HCl 2 mg 06/10/19 19:44 Versed 5 Mg/Ml IVPUSH 06/10/19 19:45 ONETIME ONE Succinylcholine Chloride 100 mg 06/10/19 19:42 Succinylcholine Chloride IV 06/10/19 19:43 ONETIME ONE Departure - Departure Time of Disposition: 20:02 Disposition: DC/Tfer to Acute Hospital 02 Condition: Serious Clinical Impression: Respiratory failure with hypoxia - Discharge Information Referrals: Pooja Delgado, BOILING TUB OPERATOR [Primary Care Provider] - Forms: ED Department Discharge Sepsis Event Note - Focused Exam Date Exam was Performed: 06/10/19 Time Exam was Performed: 20:02 - My Orders Last 24 Hours: My Active Orders 06/10/19 19:40 DRUG SCREEN, URINE [URCHEM] Stat HCG QUALITATIVE,URINE [URCHEM] Stat 06/10/19 19:45 UA RFX NOBLE AND CULT IF INDIC [URIN] Stat - Assessment/Plan Last 24 Hours: My Active Orders 06/10/19 19:40 DRUG SCREEN, URINE [URCHEM] Stat HCG QUALITATIVE,URINE [URCHEM] Stat 06/10/19 19:45 UA RFX NOBLE AND CULT IF INDIC [URIN] Stat
--- NOTE | 2019-06-10 19:56 | CR ---
Chest: Portable view of the chest was obtained. Comparison: No previous chest x-ray. Endotracheal tube is seen. Tip lies at the level of the clavicles in satisfactory position. Nasogastric tube is seen with tip being within the stomach. Heart size and mediastinum are within normal limits for AP technique. Slight atelectasis is seen within the left midlung. Lungs otherwise are clear. Scoliosis is present within the spine. Impression: 1. Satisfactory position of endotracheal tube and nasogastric tube. 2. Slight atelectasis within the left midlung. 3. Other findings believed to be incidental. Diagnostic code #3 This report was dictated in [place] Standard Time
== END 2019-06-10 20:15 ==
LOC: MW.ED 18:47
DX: J96.91 Respiratory failure, unspecified with hypoxia (principal)
CPT/HCPCS: 31500; 43752; 51702; 71045; 80053; 80305; 81001; 81025; 82962; 83605; 85025; 96374; 99291; 99292; J0330; 99285

== ENCOUNTER 2019-07-19 20:47 | Observation (INO) | payer MEDICAID ==
--- NOTE | 2019-07-19 21:16 | EDM.PDOC ---
<Shayna Can - Last Filed: 07/19/19 22:02> ED HPI GENERAL MEDICAL PROBLEM - General Chief Complaint: Lower Extremity Injury/Pain Stated Complaint: LEFT ANKLE INJURY Time Seen by Provider: 07/19/19 20:55 Source of Information: Reports: Family History Limitations: Reports: Other (Non-vocal at baseline) - History of Present Illness INITIAL COMMENTS - FREE TEXT/NARRATIVE: HISTORY AND PHYSICAL: History of present illness: Patient is a 33-year-old female, with a h/o autism and cerebral palsy who is non -vocal at baseline, who presents to the ED today with her parents for concern of a fall that occurred today at about 2 PM. Parents state that she has been crying off and on since the fall and they were initially unable to isolate what the problem was. Mother states then she started noticing that there was swelling and bruising around the outer left ankle. Mother states that other than the ankle she is not sure if there is any pain that patient has. Mother states the fall was unwitnessed and patient was in her bedroom when the fall had occurred. Mother states she is unsure if she hit her head or loss consciousness. Mother states patient has been walking since then but has not been wanting to put as much weight on the left ankle. Mother denies any other symptoms for patient. Mother states that patient was discharged from the hospital after 15 days in [place] after she was last seen here in the ED on 06/10/2019 and was transferred after ingestion of an unknown substance with respiratory distress. Mother states that she was discharged from the hospital on an antibiotic for pneumonia and at time of discharge from not had a slight urinary tract infection and was instructed to follow-up with primary care. Mother states she had an appointment on Monday with Pooja Delgado and was not given any additional antibiotics according to mother. Mother denies fever, shortness of breath, or cough. Denies vomiting, diarrhea, constipation. Has not noted any blood in urine or stool. Patient has been eating and drinking appropriately. Review of systems: As per history of present illness and below otherwise all systems reviewed and negative. Past medical history: As per history of present illness and as reviewed below otherwise noncontributory. Surgical history: As per history of present illness and as reviewed below otherwise noncontributory. Social history: See social history for further information Family history: As per history of present illness and as reviewed below otherwise noncontributory. Physical exam: Physical exam is limited due to patients non-verbal communication. General: Patient is alert, non vocal at baseline, and in no acute distress. Patient laying comfortably on exam table but periodically tearful on exam. HEENT: Atraumatic, normocephalic, pupils equal and reactive bilaterally, negative for conjunctival pallor or scleral icterus, mucous membranes moist, TMs normal bilaterally, throat clear, neck supple, nontender, trachea midline. No drooling or trismus noted. No meningeal signs. No hot potato voice noted. Lungs: Clear to auscultation, breath sounds equal bilaterally, chest nontender. Heart: S1S2, regular rate and rhythm without overt murmur Abdomen: Soft, nondistended, nontender. Negative for masses or hepatosplenomegaly. Negative for costovertebral tenderness. Pelvis: Stable nontender. Genitourinary: Deferred. Rectal: Deferred. Skin: Intact, warm, dry. No lesions or rashes noted. Extremities/musculoskeletal: There is mild erythema of the lateral malleolus without edema or warmth to the touch. Otherwise, Atraumatic, negative for cords or calf pain. Neurovascular unremarkable. Full ROM of bilateral upper and lower extremities. No obvious deformity of the complete spine. No step-offs, crepitus to palpation of the spine. Neuro: Awake, alert, nonvocal per baseline. Cranial nerves II through XII unremarkable.Exam nonfocal. Notes: EKG reviewed with Dr. Jacques Hanna has assumed care of patient at 20:00 and will follow remaining diagnostics and disposition. Diagnostics: CBC, CMP, EKG, CXR, Trop, Lipase, Ankle XR, CXR, head CT, pelvis XR (Mother declines UA) Therapeutics: Toradol Prescription: Impression: Left ankle injury H/O fall H/O autism, non-communicative at baseline Plan: Definitive disposition and diagnosis as appropriate pending reevaluation and review of above. - Related Data Allergies Allergy/AdvReac Type Severity Reaction Status Date / Time No Known Allergies Allergy Verified 07/19/19 21:03 Home Meds: Home Meds Calcium Carb/Vitamin D3/Vit K1 [Calcium + D Soft Chewable Tab] 1 tab PO DAILY [History] l-Norgest/E.estradion-E.estrad [Daysee 0.15-0.03-0.01 mg Tab] 1 tab PO DAILY [History] Past Medical History HEENT History: Reports: Impaired Vision Cardiovascular History: Reports: None Respiratory History: Reports: None Gastrointestinal History: Reports: Chronic Constipation Genitourinary History: Reports: Urinary Incontinence, UTI, Recurrent LAND EXAMINER History: Reports: Other (See Below) Other LAND EXAMINER History: Menorrhagia Musculoskeletal History: Reports: None Neurological History: Reports: Seizure Psychiatric History: Reports: Autism, Developmental Delay, Mood Swings Endocrine/Metabolic History: Reports: None Insulin Pump Model and Electric Golf Cart Repairers: None Hematologic History: Reports: None Immunologic History: Reports: None Dermatologic History: Reports: None - Infectious Disease History Infectious Disease History: Reports: None - Past Surgical History Head Surgeries/Procedures: Reports: None HEENT Surgical History: Reports: Oral Surgery Social & Family History - Family History Family Medical History: Noncontributory - Tobacco Use Second Hand Smoke Exposure: No - Caffeine Use Caffeine Use: Reports: None - Living Situation & Occupation Living situation: Reports: Extended Care Facility Review of Systems - Review of Systems Review Of Systems: Comprehensive ROS is negative, except as noted in HPI. ED EXAM, GENERAL - Physical Exam Exam: See Below (see dictation) Course - Vital Signs Last Recorded V/S: Last Vital Signs Temp 98.4 F 07/19/19 21:04 Pulse 116 H 07/19/19 21:04 Resp 18 07/19/19 21:04 BP 123/88 07/19/19 21:04 Pulse Ox 96 07/19/19 21:04 - Orders/Labs/Meds Orders: Active Orders 24 hr Category Date Time Status Admission Status [Patient Status] [ADT] Stat ADT 07/19/19 23:21 Active EKG Documentation Completion [RC] STAT Care 07/19/19 21:11 Active Sodium Chloride 0.9% [Normal Saline] 1,000 ml Med 07/19/19 23:30 Active IV ASDIRECTED Medication Orders Sodium Chloride (Normal Saline) 1,000 mls @ 125 mls/hr IV ASDIRECTED TI Labs: Laboratory Tests 07/19/19 07/19/19 Range/Units 21:40 21:40 WBC 13.35 H (4.0-11.0) K/uL RBC 4.72 (4.30-5.90) M/uL Hgb 13.8 (12.0-16.0) g/dL Hct 42.5 (36.0-46.0) % MCV 90.0 (80.0-98.0) fL MCH 29.2 (27.0-32.0) pg MCHC 32.5 (31.0-37.0) g/dL RDW Std Deviation 49.7 (28.0-62.0) fl RDW Coeff of Frank 15 (11.0-15.0) % Plt Count 252 (150-400) K/uL MPV 9.70 (7.40-12.00) fL Neut % (Auto) 69.9 (48.0-80.0) % Lymph % (Auto) 23.5 (16.0-40.0) % Wolfe % (Auto) 6.1 (0.0-15.0) % Eos % (Auto) 0.3 (0.0-7.0) % Baso % (Auto) 0.2 (0.0-1.5) % Neut # (Auto) 9.3 H (1.4-5.7) K/uL Lymph # (Auto) 3.1 H (0.6-2.4) K/uL Wolfe # (Auto) 0.8 (0.0-0.8) K/uL Eos # (Auto) 0.0 (0.0-0.7) K/uL Baso # (Auto) 0.0 (0.0-0.1) K/uL Nucleated RBC % 0.0 /100WBC Nucleated RBCs # 0 K/uL Sodium 141 (136-145) mmol/L Potassium 3.9 (3.5-5.1) mmol/L Chloride 105 (98-107) mmol/L Carbon Dioxide 22.7 (21.0-32.0) mmol/L BUN 10 (7.0-18.0) mg/dL Creatinine 0.7 (0.6-1.0) mg/dL Est Cr Clr Drug Dosing 100.94 mL/min Estimated GFR (MDRD) > 60.0 ml/min Glucose 135 H (74-106) mg/dL Calcium 8.6 (8.5-10.1) mg/dL Total Bilirubin 0.3 (0.2-1.0) mg/dL AST 34 (15-37) IU/L ALT 82 H (14-63) IU/L Alkaline Phosphatase 75 (46-116) U/L Troponin I < 0.050 (0.000-0.056) ng/mL Total Protein 7.3 (6.4-8.2) g/dL Albumin 3.3 L (3.4-5.0) g/dL Globulin 4.0 (2.6-4.0) g/dL Albumin/Globulin Ratio 0.8 L (0.9-1.6) Lipase 543 H (73-393) U/L Meds: Medications Generic Name Dose Route Start Last Admin Trade Name Freq PRN Reason Stop Dose Admin Sodium Chloride 1,000 mls @ 125 mls/hr 07/19/19 23:30 Normal Saline IV ASDIRECTED TI Discontinued Medications Generic Name Dose Route Start Last Admin Trade Name Freq PRN Reason Stop Dose Admin Ketorolac Tromethamine 60 mg 07/19/19 21:27 Toradol IM 07/19/19 21:28 ONETIME ONE Departure - Departure Disposition: Refer to Observation Clinical Impression: Pancreatitis, acute - Discharge Information Referrals: Pooja Delgado, STRUCTURAL STEEL WORKER HELPER [Primary Care Provider] - Forms: ED Department Discharge Sepsis Event Note - Evaluation Sepsis Screening Result: No Definite Risk - Focused Exam Vital Signs: Vital Signs Temp Pulse Resp BP Pulse Ox 07/19/19 21:04 98.4 F 116 H 18 123/88 96 Date Exam was Performed: 07/19/19 Time Exam was Performed: 22:03 - My Orders Last 24 Hours: My Active Orders 07/19/19 23:21 Admission Status [Patient Status] [ADT] Stat 07/19/19 23:30 Sodium Chloride 0.9% [Normal Saline] 1,000 ml IV ASDIRECTED - Assessment/Plan Last 24 Hours: My Active Orders 07/19/19 23:21 Admission Status [Patient Status] [ADT] Stat 07/19/19 23:30 Sodium Chloride 0.9% [Normal Saline] 1,000 ml IV ASDIRECTED <Fausto Hanna - Last Filed: 07/19/19 23:34> Course - Re-Assessments/Exams Free Text/Narrative Re-Assessment/Exam: 07/19/19 23:32 Imaging negative Pt remains stable. Labs shows mild Pancreatitis. IVF started and Dr. Grajeda contacted for admission of IVF and Bowel rest. Departure - Departure Time of Disposition: 23:33 Condition: Good - Discharge Information *PRESCRIPTION DRUG MONITORING PROGRAM REVIEWED*: Not Applicable *COPY OF PRESCRIPTION DRUG MONITORING REPORT IN PATIENT KYM: Not Applicable Sepsis Event Note - Focused Exam Date Exam was Performed: 07/19/19 Time Exam was Performed: 23:32
[2019-07-19] MEDS ORDERED: Ketorolac 60 MG/2 ML SDV IM ONE (21:27)
[2019-07-19 22:07] LABS: BLOOD UREA NITROGEN,BUN 10 mg/dL (7.0-18.0); CARBON DIOXIDE,CO2 22.7 mmol/L (21.0-32.0); CHLORIDE,CL 105 mmol/L (98-107); GLUCOSE RANDOM 135 mg/dL (74-106); LIPASE 543 U/L (73-393); POTASSIUM,K 3.9 mmol/L (3.5-5.1); SODIUM,NA 141 mmol/L (136-145)
--- NOTE | 2019-07-19 22:27 | CR ---
INDICATION: fall, from standing height TECHNIQUE: Chest 1 view. COMPARISON: 06/10/19 FINDINGS: Cardiovascular and mediastinum: Heart size and vasculature are normal in caliber and appearance. Mediastinum is within normal limits. Lungs and pleural space: Lungs are clear. No sign of infiltrate or mass. No sign of pleural effusion. No pneumothorax. Bones and soft tissues: No significant findings. IMPRESSION: Unremarkable chest. Dictated by: Tyree Tran MD @ 07/19/2019 22:24:59 (Electronically Signed)
--- NOTE | 2019-07-19 22:30 | CR ---
INDICATION: Fall. COMPARISON: None. FINDINGS/IMPRESSION: Left ankle, three views. Evaluation is mildly limited by suboptimal positioning. No acute fracture or dislocation is seen in the left ankle. Postoperative changes are seen in the 1st ray, including a tubular defect from prior surgical hardware in the 1st metatarsal and a longitudinal screw extending through the interphalangeal joint of the great toe. Dictated by Adrian Boateng MD @ 07/19/2019 10:29:11 PM Dictated by: Adrian Boateng MD @ 07/19/2019 22:30:23 (Electronically Signed)
--- NOTE | 2019-07-19 22:35 | CR ---
INDICATION: Fall from standing height. COMPARISON: None. FINDINGS/IMPRESSION: AP pelvis. 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 No acute fracture identified. 13 x 3 millimeter elongated calcification projected over the right mid abdomen at the upper edge of the image, significance uncertain. Dictated by Adrian Boateng MD @ 07/19/2019 10:32:42 PM Dictated by: Adrian Boateng MD @ 07/19/2019 22:33:43 (Electronically Signed)
--- NOTE | 2019-07-19 22:39 | CT ---
INDICATION: unwitnessed fall, pt nonverbal CT HEAD WITHOUT CONTRAST TECHNIQUE: Multiple axial CT images were performed through the head without intravenous contrast administration. COMPARISON: No previous studies are currently available for comparison. FINDINGS: The exam is limited by motion. Images were repeated. No acute intracranial hemorrhage is identified. No extra-axial collections are evident and there is no mass effect or midline shift. Ventricles are normal in size and configuration. Brain parenchyma appears normal with unremarkable lagos-white differentiation. Osseous structures are within normal limits and no fractures are seen. Included portions of the paranasal sinuses and mastoid air cells are normally aerated aside from minimal mucosal thickening in the left maxillary sinus. IMPRESSION: No acute intracranial abnormality identified. CATRACHITO BOLTON MD [employer] [facility] Dictated by: Adrian Bolton MD @ 07/19/2019 22:37:54 (Electronically Signed)
[2019-07-19] MEDS ORDERED: Sodium Chloride 0.9% 1,000 ML IV SCH (23:30)
[2019-07-19] MEDS ORDERED: Morphine 4 MG/ML Syringe IVPUSH ONE (23:37)
[2019-07-19] MEDS ORDERED: Ondansetron 4 MG/2 ML SDV IVPUSH ONE (23:37)
[2019-07-20] MEDS ORDERED: Ketorolac 15 MG/ML SDV IVPUSH PRN (01:51)
[2019-07-20] MEDS: Lactated Ringers 1,000 ML IV SCH ×2 (02:22→09:32)
[2019-07-20 06:22] LABS: BLOOD UREA NITROGEN,BUN 9 mg/dL (7.0-18.0); CARBON DIOXIDE,CO2 22.9 mmol/L (21.0-32.0); CHLORIDE,CL 109 mmol/L (98-107); GLUCOSE RANDOM 89 mg/dL (74-106); LIPASE 320 U/L (73-393); POTASSIUM,K 3.8 mmol/L (3.5-5.1); SODIUM,NA 143 mmol/L (136-145)
[2019-07-20] MEDS ORDERED: Pantoprazole 40 MG in Sodium Chloride 0.9% 10 ML IV SCH (09:00)
--- NOTE | 2019-07-20 09:40 | PCM.HP.2 ---
H&P History of Present Illness - General Date of Service: 07/20/19 Admit Problem/Dx: Admission Diagnosis/Problem Admission Diagnosis/Problem Acute pancreatitis - History of Present Illness Initial Comments - Free Text/Narative: Patient is a 33-year-old female, with a h/o autism and cerebral palsy, non- verbal at baseline, able to ambulate was bought in to ER by her parents due tofor concern of a unwitnessed fall that occurred today. Parents state she falls often but she never was crying so bad. They were unbale to figure out the source of her pain. Mother states then she started noticing that there was swelling and bruising around the outer left ankle. Mother states she is unsure if she hit her head or loss consciousness. According o the mother, patient was recently admitted to [place] for an incident when she mistakenly drank some unknown substance and developed aspiration pneumonia. Patient was discharged on Augmentin and asked to fu with PCP. Per family, no known fever, shortness of breath, or cough. Denied vomiting, diarrhea, constipation. Patient has been eating and drinking appropriately. Patient underwent several x-ray and most of the work up was negative, further work up did show elevated lipase, slightly elevated ALT, rest LFTs normal . Patient was admitted for further management of pancreatitis while likely was the source of pain. - Related Data Allergies/Adverse Reactions: Allergies Allergy/AdvReac Type Severity Reaction Status Date / Time morphine Allergy Agitation Verified 07/20/19 09:28 Home Medications: Home Meds Calcium Carb/Vitamin D3/Vit K1 [Calcium + D Soft Chewable Tab] 1 tab PO DAILY [History] l-Norgest/E.estradion-E.estrad [Daysee 0.15-0.03-0.01 mg Tab] 1 tab PO DAILY [History] Pantoprazole [ProTONIX] 40 mg PO DAILY #7 tab.cr 07/20/19 [Rx] Past Medical History HEENT History: Reports: Impaired Vision Cardiovascular History: Reports: None Respiratory History: Reports: None Gastrointestinal History: Reports: Chronic Constipation Genitourinary History: Reports: Urinary Incontinence, UTI, Recurrent PURCHASING ADMINISTRATOR History: Reports: Other (See Below) Other OB/BYN History: Menorrhagia Musculoskeletal History: Reports: None Neurological History: Reports: Seizure Psychiatric History: Reports: Autism, Developmental Delay, Mood Swings Endocrine/Metabolic History: Reports: None Insulin Pump Model and Flower Shop Laborer/Designer: None Hematologic History: Reports: None Immunologic History: Reports: None Dermatologic History: Reports: None - Infectious Disease History Infectious Disease History: Reports: None - Past Surgical History Head Surgeries/Procedures: Reports: None HEENT Surgical History: Reports: Oral Surgery Social & Family History - Family History Family Medical History: Noncontributory - Tobacco Use Smoking Status *Q: Never Smoker Second Hand Smoke Exposure: No - Caffeine Use Caffeine Use: Reports: Coffee - Recreational Drug Use Recreational Drug Use: No - Living Situation & Occupation Living situation: Reports: Extended Care Facility H&P Review of Systems - Review of Systems: Review Of Systems: Unable To Obtain Reason Not Obtained: non-verbal at baseline Exam - Exam Exam: See Below - Vital Signs Vital Signs: Last Vital Signs Temp 36.7 C 07/20/19 01:30 Pulse 94 07/20/19 01:30 Resp 18 07/20/19 01:30 BP 110/61 07/20/19 01:30 Pulse Ox 97 07/20/19 01:30 Weight: 76.657 kg - Exam Quality Assessment: No: Supplemental Oxygen General: Alert Neck: Supple, Trachea Midline Lungs: Clear to Auscultation, Normal Respiratory Effort Cardiovascular: Regular Rate, Regular Rhythm GI/Abdominal Exam: Normal Bowel Sounds, Soft, Non-Tender - Patient Data Lab Results Last 24 hrs: Laboratory Results - last 24 hr 07/19/19 07/19/19 07/20/19 Range/Units 21:40 21:40 05:35 WBC 13.35 H 11.16 H (4.0-11.0) K/uL RBC 4.72 4.15 L (4.30-5.90) M/uL Hgb 13.8 12.2 (12.0-16.0) g/dL Hct 42.5 37.2 (36.0-46.0) % MCV 90.0 89.6 (80.0-98.0) fL MCH 29.2 29.4 (27.0-32.0) pg MCHC 32.5 32.8 (31.0-37.0) g/dL RDW Std Deviation 49.7 48.8 (28.0-62.0) fl RDW Coeff of Frank 15 15 (11.0-15.0) % Plt Count 252 239 (150-400) K/uL MPV 9.70 9.80 (7.40-12.00) fL Neut % (Auto) 69.9 60.3 (48.0-80.0) % Lymph % (Auto) 23.5 31.8 (16.0-40.0) % [place] % (Auto) 6.1 6.4 (0.0-15.0) % Eos % (Auto) 0.3 1.3 (0.0-7.0) % Baso % (Auto) 0.2 0.2 (0.0-1.5) % Neut # (Auto) 9.3 H 6.7 H (1.4-5.7) K/uL Lymph # (Auto) 3.1 H 3.6 H (0.6-2.4) K/uL [place] # (Auto) 0.8 0.7 (0.0-0.8) K/uL Eos # (Auto) 0.0 0.1 (0.0-0.7) K/uL Baso # (Auto) 0.0 0.0 (0.0-0.1) K/uL Nucleated RBC % 0.0 0.0 /100WBC Nucleated RBCs # 0 0 K/uL Sodium 141 (136-145) mmol/L Potassium 3.9 (3.5-5.1) mmol/L Chloride 105 (98-107) mmol/L Carbon Dioxide 22.7 (21.0-32.0) mmol/L BUN 10 (7.0-18.0) mg/dL Creatinine 0.7 (0.6-1.0) mg/dL Est Cr Clr Drug Dosing 100.94 mL/min Estimated GFR (MDRD) > 60.0 ml/min Glucose 135 H (74-106) mg/dL Calcium 8.6 (8.5-10.1) mg/dL Phosphorus (2.6-4.7) mg/dL Magnesium (1.8-2.4) mg/dL Total Bilirubin 0.3 (0.2-1.0) mg/dL AST 34 (15-37) IU/L ALT 82 H (14-63) IU/L Alkaline Phosphatase 75 (46-116) U/L Troponin I < 0.050 (0.000-0.056) ng/mL Total Protein 7.3 (6.4-8.2) g/dL Albumin 3.3 L (3.4-5.0) g/dL Globulin 4.0 (2.6-4.0) g/dL Albumin/Globulin Ratio 0.8 L (0.9-1.6) Lipase 543 H (73-393) U/L 07/20/19 Range/Units 05:35 WBC (4.0-11.0) K/uL RBC (4.30-5.90) M/uL Hgb (12.0-16.0) g/dL Hct (36.0-46.0) % MCV (80.0-98.0) fL MCH (27.0-32.0) pg MCHC (31.0-37.0) g/dL RDW Std Deviation (28.0-62.0) fl RDW Coeff of Frank (11.0-15.0) % Plt Count (150-400) K/uL MPV (7.40-12.00) fL Neut % (Auto) (48.0-80.0) % Lymph % (Auto) (16.0-40.0) % [place] % (Auto) (0.0-15.0) % Eos % (Auto) (0.0-7.0) % Baso % (Auto) (0.0-1.5) % Neut # (Auto) (1.4-5.7) K/uL Lymph # (Auto) (0.6-2.4) K/uL [place] # (Auto) (0.0-0.8) K/uL Eos # (Auto) (0.0-0.7) K/uL Baso # (Auto) (0.0-0.1) K/uL Nucleated RBC % /100WBC Nucleated RBCs # K/uL Sodium 143 (136-145) mmol/L Potassium 3.8 (3.5-5.1) mmol/L Chloride 109 H (98-107) mmol/L Carbon Dioxide 22.9 (21.0-32.0) mmol/L BUN 9 (7.0-18.0) mg/dL Creatinine 0.6 (0.6-1.0) mg/dL Est Cr Clr Drug Dosing 117.76 mL/min Estimated GFR (MDRD) > 60.0 ml/min Glucose 89 (74-106) mg/dL Calcium 7.9 L (8.5-10.1) mg/dL Phosphorus 3.7 (2.6-4.7) mg/dL Magnesium 1.9 (1.8-2.4) mg/dL Total Bilirubin 0.4 (0.2-1.0) mg/dL AST 25 (15-37) IU/L ALT 68 H (14-63) IU/L Alkaline Phosphatase 60 (46-116) U/L Troponin I (0.000-0.056) ng/mL Total Protein 6.0 L (6.4-8.2) g/dL Albumin 2.7 L (3.4-5.0) g/dL Globulin 3.3 (2.6-4.0) g/dL Albumin/Globulin Ratio 0.8 L (0.9-1.6) Lipase 320 (73-393) U/L Result Diagrams: 07/20/19 05:35 07/20/19 05:35 Sepsis Event Note - Evaluation Sepsis Screening Result: No Definite Risk - Focused Exam Vital Signs: Vital Signs Temp Pulse Resp BP Pulse Ox 07/20/19 01:30 36.7 C 94 18 110/61 97 Date Exam was Performed: 07/20/19 Time Exam was Performed: 14:54 - Problem List (1) Pancreatitis SNOMED Code(s): 03494875 ICD Code: K85.90 - ACUTE PANCREATITIS WITHOUT NECROSIS OR INFECTION, UNSP Status: Acute Current Visit: Yes (2) Fall SNOMED Code(s): 7154053, 550145195 ICD Code: W19.XXXA - UNSPECIFIED FALL, INITIAL ENCOUNTER Status: Acute Current Visit: Yes (3) Autism SNOMED Code(s): 811507830 ICD Code: F84.0 - AUTISTIC DISORDER Status: Chronic Current Visit: No (4) Cerebral palsy SNOMED Code(s): 771372049 ICD Code: G80.9 - CEREBRAL PALSY, UNSPECIFIED Status: Chronic Current Visit: No Problem List Initiated/Reviewed/Updated: Yes Orders Last 24hrs: Active Orders 24 hr Category Date Time Status Admission Status [Patient Status] [ADT] Stat ADT 07/19/19 23:21 Active Vital Signs [RC] Q4H Care 07/20/19 01:44 Active NPO [Nothing Per Oral Diet] [DIET] Diet 07/20/19 Breakfast Active Abdomen Ltd [US] Routine Exams 07/20/19 03:18 Ordered Ketorolac [Toradol] Med 07/20/19 01:51 Active 15 mg IVPUSH Q6H PRN Lactated Ringers [Ringers, Lactated] 1,000 ml Med 07/20/19 01:45 Active IV ASDIRECTED Pantoprazole [ProTONIX IV] 40 mg Med 07/20/19 09:00 Active Sodium Chloride 0.9% [Normal Saline] 10 ml IV DAILY Medication Orders Lactated Ringer's (Ringers, Lactated) 1,000 mls @ 125 mls/hr IV ASDIRECTED TI Last Admin: 07/20/19 09:32 Dose: 125 mls/hr Infusion: 07/20/19 09:32 Dose: 125 mls/hr Admin: 07/20/19 02:22 Dose: 125 mls/hr Pantoprazole Sodium 40 mg/ (Sodium Chloride) 10 mls @ 300 mls/hr IV DAILY [facility] Last Admin: 07/20/19 08:26 Dose: 300 mls/hr Ketorolac Tromethamine (Toradol) 15 mg IVPUSH Q6H PRN PRN Reason: Pain Stop: 07/25/19 01:51 Last Admin: 07/20/19 02:16 Dose: 15 mg Assessment/Plan Comment:: A/P: 33 y/o F admitted fro acute pancreatitis Will keep NPO for now, advance diet as tolerated today when patient has some appetite Trend Lipase Trend LFT Cont IVF Pain control with IV Toradol Check USG Liver Check Lipid prenatal teacher and replete electrolytes as needed Supportive care for cerebral palsy EDIT: Patient was able to tolerate soft diet, no more pain, looks comfortable US liver showed no gall stones although study was sub-optimal Lipid profile was normal, lipase level is normal, white count almost resolved, no fevers Patient is medically stable for dc
--- NOTE | 2019-07-20 12:28 | US ---
Limited abdominal ultrasound: Multiple real-time images of the upper right abdomen were obtained. Comparison: No prior abdominal imaging. Technologist's note: Poor exam due to bowel gas and right upper quadrant Liver shows no discrete abnormality. Right kidney shows no hydronephrosis or discrete mass. Right kidney length is 11.1 cm. Gallbladder not well distended. Gallbladder wall is thickened which likely relates to lack of distention. No gross findings of shadowing gallstones are seen. No biliary duct dilatation is seen. Pancreas is obscured from bowel gas. Impression: 1. Somewhat limited study as noted above. 2. Nothing acute is definitely appreciated. Diagnostic code #2 This report was dictated in [place] Standard Time
--- NOTE | 2019-07-20 12:54 | PCM.DCSUM1 ---
Discharge Summary - Discharge Data Discharge Disposition: Home, Self-Care 01 Condition: Fair - Referral to Home Health Primary Care Physician: Pooja Delgado NP - Discharge Plan *PRESCRIPTION DRUG MONITORING PROGRAM REVIEWED*: Not Applicable *COPY OF PRESCRIPTION DRUG MONITORING REPORT IN PATIENT KYM: Not Applicable Home Medications: Home Meds Calcium Carb/Vitamin D3/Vit K1 [Calcium + D Soft Chewable Tab] 1 tab PO DAILY [History] l-Norgest/E.estradion-E.estrad [Daysee 0.15-0.03-0.01 mg Tab] 1 tab PO DAILY [History] Forms: ED Department Discharge Referrals: Pooja Delgado NP [Primary Care Provider] - - Patient Data Vitals - Most Recent: Last Vital Signs Temp 37.5 C 07/20/19 12:09 Pulse 91 07/20/19 12:09 Resp 18 07/20/19 12:09 BP 129/61 07/20/19 12:09 Pulse Ox 94 L 07/20/19 12:09 Weight - Most Recent: 76.657 kg I&O - Last 24 hours: Intake & Output 07/19/19 07/20/19 07/20/19 22:59 06:59 14:59 Intake Total 500 Balance 500 Lab Results - Last 24 hrs: Laboratory Results - last 24 hr 07/19/19 07/19/19 07/20/19 Range/Units 21:40 21:40 05:35 WBC 13.35 H 11.16 H (4.0-11.0) K/uL RBC 4.72 4.15 L (4.30-5.90) M/uL Hgb 13.8 12.2 (12.0-16.0) g/dL Hct 42.5 37.2 (36.0-46.0) % MCV 90.0 89.6 (80.0-98.0) fL MCH 29.2 29.4 (27.0-32.0) pg MCHC 32.5 32.8 (31.0-37.0) g/dL RDW Std Deviation 49.7 48.8 (28.0-62.0) fl RDW Coeff of Frank 15 15 (11.0-15.0) % Plt Count 252 239 (150-400) K/uL MPV 9.70 9.80 (7.40-12.00) fL Neut % (Auto) 69.9 60.3 (48.0-80.0) % Lymph % (Auto) 23.5 31.8 (16.0-40.0) % [place] % (Auto) 6.1 6.4 (0.0-15.0) % Eos % (Auto) 0.3 1.3 (0.0-7.0) % Baso % (Auto) 0.2 0.2 (0.0-1.5) % Neut # (Auto) 9.3 H 6.7 H (1.4-5.7) K/uL Lymph # (Auto) 3.1 H 3.6 H (0.6-2.4) K/uL [place] # (Auto) 0.8 0.7 (0.0-0.8) K/uL Eos # (Auto) 0.0 0.1 (0.0-0.7) K/uL Baso # (Auto) 0.0 0.0 (0.0-0.1) K/uL Nucleated RBC % 0.0 0.0 /100WBC Nucleated RBCs # 0 0 K/uL Sodium 141 (136-145) mmol/L Potassium 3.9 (3.5-5.1) mmol/L Chloride 105 (98-107) mmol/L Carbon Dioxide 22.7 (21.0-32.0) mmol/L BUN 10 (7.0-18.0) mg/dL Creatinine 0.7 (0.6-1.0) mg/dL Est Cr Clr Drug Dosing 100.94 mL/min Estimated GFR (MDRD) > 60.0 ml/min Glucose 135 H (74-106) mg/dL Calcium 8.6 (8.5-10.1) mg/dL Phosphorus (2.6-4.7) mg/dL Magnesium (1.8-2.4) mg/dL Total Bilirubin 0.3 (0.2-1.0) mg/dL AST 34 (15-37) IU/L ALT 82 H (14-63) IU/L Alkaline Phosphatase 75 (46-116) U/L Troponin I < 0.050 (0.000-0.056) ng/mL Total Protein 7.3 (6.4-8.2) g/dL Albumin 3.3 L (3.4-5.0) g/dL Globulin 4.0 (2.6-4.0) g/dL Albumin/Globulin Ratio 0.8 L (0.9-1.6) Lipase 543 H (73-393) U/L 07/20/19 Range/Units 05:35 WBC (4.0-11.0) K/uL RBC (4.30-5.90) M/uL Hgb (12.0-16.0) g/dL Hct (36.0-46.0) % MCV (80.0-98.0) fL MCH (27.0-32.0) pg MCHC (31.0-37.0) g/dL RDW Std Deviation (28.0-62.0) fl RDW Coeff of Frank (11.0-15.0) % Plt Count (150-400) K/uL MPV (7.40-12.00) fL Neut % (Auto) (48.0-80.0) % Lymph % (Auto) (16.0-40.0) % [place] % (Auto) (0.0-15.0) % Eos % (Auto) (0.0-7.0) % Baso % (Auto) (0.0-1.5) % Neut # (Auto) (1.4-5.7) K/uL Lymph # (Auto) (0.6-2.4) K/uL [place] # (Auto) (0.0-0.8) K/uL Eos # (Auto) (0.0-0.7) K/uL Baso # (Auto) (0.0-0.1) K/uL Nucleated RBC % /100WBC Nucleated RBCs # K/uL Sodium 143 (136-145) mmol/L Potassium 3.8 (3.5-5.1) mmol/L Chloride 109 H (98-107) mmol/L Carbon Dioxide 22.9 (21.0-32.0) mmol/L BUN 9 (7.0-18.0) mg/dL Creatinine 0.6 (0.6-1.0) mg/dL Est Cr Clr Drug Dosing 117.76 mL/min Estimated GFR (MDRD) > 60.0 ml/min Glucose 89 (74-106) mg/dL Calcium 7.9 L (8.5-10.1) mg/dL Phosphorus 3.7 (2.6-4.7) mg/dL Magnesium 1.9 (1.8-2.4) mg/dL Total Bilirubin 0.4 (0.2-1.0) mg/dL AST 25 (15-37) IU/L ALT 68 H (14-63) IU/L Alkaline Phosphatase 60 (46-116) U/L Troponin I (0.000-0.056) ng/mL Total Protein 6.0 L (6.4-8.2) g/dL Albumin 2.7 L (3.4-5.0) g/dL Globulin 3.3 (2.6-4.0) g/dL Albumin/Globulin Ratio 0.8 L (0.9-1.6) Lipase 320 (73-393) U/L Med Orders - Current: Current Medications Lactated Ringer's (Ringers, Lactated) 1,000 mls @ 125 mls/hr IV ASDIRECTED [facility] Last Admin: 07/20/19 09:32 Dose: 125 mls/hr Pantoprazole Sodium 40 mg/ (Sodium Chloride) 10 mls @ 300 mls/hr IV DAILY [facility] Last Admin: 07/20/19 08:26 Dose: 300 mls/hr Ketorolac Tromethamine (Toradol) 15 mg IVPUSH Q6H PRN PRN Reason: Pain Stop: 07/25/19 01:51 Last Admin: 07/20/19 02:16 Dose: 15 mg Discontinued Medications Sodium Chloride (Normal Saline) 1,000 mls @ 125 mls/hr IV ASDIRECTED [facility] Last Admin: 07/20/19 00:35 Dose: 125 mls/hr Ketorolac Tromethamine (Toradol) 60 mg IM ONETIME ONE Stop: 07/19/19 21:28 Last Admin: 07/19/19 21:30 Dose: 60 mg Morphine Sulfate (Morphine) 4 mg IVPUSH ONETIME ONE Stop: 07/19/19 23:38 Last Admin: 07/20/19 00:34 Dose: 4 mg Ondansetron HCl (Zofran) 4 mg IVPUSH ONETIME ONE Stop: 07/19/19 23:38 Last Admin: 07/20/19 00:34 Dose: 4 mg
== END 2019-07-20 15:30 | disposition home or self-care (01) ==
LOC: MW.ED 20:47 → MW.MS 23:21
PROVIDERS: ADMIT Student in an Organized Health Care Education/Training Program; ATTEND Student in an Organized Health Care Education/Training Program
DX: K85.90 Acute pancreatitis without necrosis or infection, unspecified (principal); S90.02XA Contusion of left ankle, initial encounter; F84.0 Autistic disorder; G80.9 Cerebral palsy, unspecified; W19.XXXA Unspecified fall, initial encounter; Z88.5 Allergy status to narcotic agent; Z79.3 Long term (current) use of hormonal contraceptives
CPT/HCPCS: 36415; 70450; 71045; 72170; 73610; 76705; 80053; 80061; 83690; 83735; 84100; 84484; 85025; 93005; 96361; 96372; 96374; 96375; 96376; 99285; C9113; G0378; J1885; J2270; J2405; J7030; J7050; J7120; 99283

== ENCOUNTER 2020-12-11 20:54 | Emergency (ER) | payer MEDICAID ==
[2020-12-11] MEDS ORDERED: Sodium Chloride 0.9% 2.5 ML Syringe FLUSH PRN (21:04)
[2020-12-11] MEDS ORDERED: Lactated Ringers 1,000 ML IV ONE ×3 (21:04→23:48)
[2020-12-11] MEDS ORDERED: Sodium Chloride 0.9% 10 ML Syringe FLUSH PRN (21:04)
[2020-12-11] MEDS ORDERED: Ondansetron 4 MG/2 ML SDV IVPUSH ONE (21:04)
--- NOTE | 2020-12-11 21:12 | EDM.PDOC ---
ED HPI GENERAL MEDICAL PROBLEM - General Chief Complaint: Gastrointestinal Problem Stated Complaint: EMS Time Seen by Provider: 12/11/20 20:55 Source of Information: Reports: EMS, Other (Caregiver at [facility]) History Limitations: Reports: Uncooperative, Other (Intellectual disability) - History of Present Illness INITIAL COMMENTS - FREE TEXT/NARRATIVE: 35-year-old female with history of autism, cerebral palsy, pancreatitis, pneumonia, moderate intellectual disability, complex partial seizure, recurrent UTI was brought in by EMS from [facility] for 2 days of nausea and vomiting, with foul-smelling and dark urine. She was given 4 mg IV Zofran prior to arrival. History is limited secondary to intellectual disability. Staffs states that she has been following up with her PCP for a left ankle injury. ROS limited secondary to intellectual disability and autism. Past medical history: No additional pertinent history Past Surgical history: No additional pertinent history Social history: No additional pertinent history Family history: No additional pertinent history PHYSICAL EXAM General: autistic, moderate intellectual disability, agitated in mild distress, nonbilious vomiting noted around the neck in the mouth. HEENT: dry mucous membrane, grinding teeth excessively Neck: supple, no meningismus, no Kernig or Brudzinski Cardiac: S1S2 tachycardia Respiratory: CTAB, no crackles or rales, no wheezing Abdomen: Soft, distended, nontender, no rebound or guarding, no pulsatile mass. Back: nontender Musculoskeletal: NVI distally, left ankle deformity Neuro: Intellectual disability, autistic - Related Data Allergies Allergy/AdvReac Type Severity Reaction Status Date / Time morphine Allergy Agitation Verified 07/20/19 09:28 Home Meds: Home Meds Calcium Carb/Vitamin D3/Vit K1 [Calcium + D Soft Chewable Tab] 1 tab PO DAILY 07/31/18 [History] l-Norgest/E.estradiol-E.estrad [Daysee 0.15-0.03-0.01 mg Tab] 1 tab PO DAILY 07/31/18 [History] Pantoprazole [ProTONIX] 40 mg PO DAILY #7 tab.cr 07/20/19 [Rx] Past Medical History HEENT History: Reports: Impaired Vision Cardiovascular History: Reports: None Respiratory History: Reports: None Gastrointestinal History: Reports: Chronic Constipation Genitourinary History: Reports: Urinary Incontinence, UTI, Recurrent CUSTOMS EXAMINER History: Reports: Other (See Below) Other CUSTOMS EXAMINER History: Menorrhagia Musculoskeletal History: Reports: None Neurological History: Reports: Seizure Psychiatric History: Reports: Autism, Developmental Delay, Mood Swings Endocrine/Metabolic History: Reports: None Insulin Pump Model and Systems Software Designer: None Hematologic History: Reports: None Immunologic History: Reports: None Dermatologic History: Reports: None - Infectious Disease History Infectious Disease History: Reports: None - Past Surgical History Head Surgeries/Procedures: Reports: None HEENT Surgical History: Reports: Oral Surgery Other Endocrine Surgeries/Procedures: diabetes insipidus Social & Family History - Family History Family Medical History: No Pertinent Family History - Caffeine Use Caffeine Use: Reports: Coffee - Recreational Drug Use Recreational Drug Use: No - Living Situation & Occupation Living situation: Reports: Extended Care Facility ED ROS GENERAL - Review of Systems Review Of Systems: Unable To Obtain (Secondary to intellectual disability) Reason Not Obtained: Intellectual disability ED EXAM, GENERAL - Physical Exam Exam: See Below (see dictation) #1 Interpretation EKG Interpretation Comments: Heart rate = 123 bpm, sinus tachycardia, normal QRS interval, no STEMI. EKG and rhythm strip interpreted by me at [id number] Course - Vital Signs Last Recorded V/S: Last Vital Signs Temp 98.3 F 12/11/20 21:51 Pulse 124 H 12/11/20 21:51 Resp 24 H 12/11/20 20:56 BP 97/77 12/11/20 21:51 Pulse Ox 95 12/11/20 21:51 - Orders/Labs/Meds Orders: Active Orders 24 hr Category Date Time Status Cardiac Monitoring [RC] . DIRECTED Care 12/11/20 21:04 Active EKG Documentation Completion [RC] STAT Care 12/11/20 21:05 Active Insert Taylor Catheter [Insert Urinary Catheter] [OM.PC] Care 12/12/20 00:15 Ordered Q24H Pulse Oximetry [RC] ASDIRECTED Care 12/11/20 21:04 Active Urinary Catheter Assessment [RC] ASDIRECTED Care 12/12/20 00:06 Ordered NPO [Nothing Per Oral Diet] [DIET] Diet 12/11/20 Dinner Ordered CORONAVIRUS COVID-19 MEHRAN [MOLEC] Stat Lab 12/11/20 23:58 Ordered CULTURE BLOOD [BC] Stat Lab 12/11/20 22:42 Received CULTURE BLOOD [BC] Stat Lab 12/11/20 22:52 Received Lactated Ringers [Ringers, Lactated] 1,000 ml Med 12/11/20 23:48 Active IV .BOLUS Sodium Chloride 0.9% [Saline Flush] Med 12/11/20 21:04 Active 10 ml FLUSH ASDIRECTED PRN Sodium Chloride 0.9% [Saline Flush] Med 12/11/20 21:04 Active 2.5 ml FLUSH ASDIRECTED PRN VANCOmycin 1.5 GM/300 ML 1.5 gm Med 12/11/20 23:00 Active Premix Bag 1 bag IV ONETIME Blood Culture x2 Reflex Set [OM.PC] Stat Oth 12/11/20 22:32 Ordered Saline Lock Insert [OM.PC] Stat Oth 12/11/20 21:04 Ordered Medication Orders Vancomycin HCl 1.5 gm/ Premix 300 mls @ 200 mls/hr IV ONETIME ONE Stop: 12/12/20 00:29 Lactated Ringer's (Ringers, Lactated) 1,000 mls @ 999 mls/hr IV .BOLUS ONE Stop: 12/12/20 00:48 Sodium Chloride (Sodium Chloride 0.9% 10 Ml Syringe) 10 ml FLUSH ASDIRECTED PRN PRN Reason: Keep Vein Open Last Admin: 12/11/20 22:05 Dose: 10 ml Documented by: MILES Sodium Chloride (Sodium Chloride 0.9% 2.5 Ml Syringe) 2.5 ml FLUSH ASDIRECTED PRN PRN Reason: Keep Vein Open Last Admin: 12/11/20 22:06 Dose: 2.5 ml Documented by: MILES Labs: Laboratory Tests 12/11/20 12/11/20 12/11/20 Range/Units 21:35 21:35 21:35 WBC 26.84 H (4.0-11.0) K/uL RBC 4.78 (4.30-5.90) M/uL Hgb 14.0 (12.0-16.0) g/dL Hct 41.8 (36.0-46.0) % MCV 87.4 (80.0-98.0) fL MCH 29.3 (27.0-32.0) pg MCHC 33.5 (31.0-37.0) g/dL RDW Std Deviation 43.9 (28.0-62.0) fl RDW Coeff of Frank 14 (11.0-15.0) % Plt Count 369 (150-400) K/uL MPV 9.50 (7.40-12.00) fL Neut % (Auto) 89.3 H (48.0-80.0) % Lymph % (Auto) 5.6 L (16.0-40.0) % [place] % (Auto) 5.0 (0.0-15.0) % Eos % (Auto) 0.0 (0.0-7.0) % Baso % (Auto) 0.1 (0.0-1.5) % Neut # (Auto) 24.0 H (1.4-5.7) K/uL Lymph # (Auto) 1.5 (0.6-2.4) K/uL [place] # (Auto) 1.3 H (0.0-0.8) K/uL Eos # (Auto) 0.0 (0.0-0.7) K/uL Baso # (Auto) 0.0 (0.0-0.1) K/uL Nucleated RBC % 0.0 /100WBC Nucleated RBCs # 0 K/uL Sodium 137 (136-145) mmol/L Potassium 3.5 (3.5-5.1) mmol/L Chloride 99 (98-107) mmol/L Carbon Dioxide 25.4 (21.0-32.0) mmol/L BUN 19 H (7.0-18.0) mg/dL Creatinine 0.7 (0.6-1.0) mg/dL Est Cr Clr Drug Dosing TNP Estimated GFR (MDRD) > 60.0 ml/min Glucose 149 H (74-106) mg/dL Lactic Acid 1.9 (0.4-2.0) mmol/L Calcium 8.8 (8.5-10.1) mg/dL Phosphorus 3.8 (2.6-4.7) mg/dL Magnesium 1.9 (1.8-2.4) mg/dL Total Bilirubin 0.6 (0.2-1.0) mg/dL AST 18 (15-37) IU/L ALT 23 (14-63) IU/L Alkaline Phosphatase 75 (46-116) U/L Troponin I < 0.050 (0.000-0.056) ng/mL Total Protein 6.6 (6.4-8.2) g/dL Albumin 2.3 L (3.4-5.0) g/dL Globulin 4.3 H (2.6-4.0) g/dL Albumin/Globulin Ratio 0.5 L (0.9-1.6) Lipase 80 (73-393) U/L Urine Color Urine Appearance Urine pH (5.0-8.0) Ur Specific [place] (1.001-1.035) Urine Protein (NEGATIVE) mg/dL Urine Glucose (UA) (NEGATIVE) mg/dL Urine Ketones (NEGATIVE) mg/dL Urine Occult Blood (NEGATIVE) Urine Nitrite (NEGATIVE) Urine Bilirubin (NEGATIVE) Urine Urobilinogen (<2.0) EU/dL Ur Leukocyte Esterase (NEGATIVE) Urine RBC (0-2/HPF) Urine WBC (0-5/HPF) Ur Epithelial Cells (NONE-FEW) Urine Bacteria (NEGATIVE) Urine Mucus (NONE-MOD) Urine HCG, Qual (NEGATIVE) 12/11/20 12/11/20 Range/Units 21:46 21:46 WBC (4.0-11.0) K/uL RBC (4.30-5.90) M/uL Hgb (12.0-16.0) g/dL Hct (36.0-46.0) % MCV (80.0-98.0) fL MCH (27.0-32.0) pg MCHC (31.0-37.0) g/dL RDW Std Deviation (28.0-62.0) fl RDW Coeff of Frank (11.0-15.0) % Plt Count (150-400) K/uL MPV (7.40-12.00) fL Neut % (Auto) (48.0-80.0) % Lymph % (Auto) (16.0-40.0) % [place] % (Auto) (0.0-15.0) % Eos % (Auto) (0.0-7.0) % Baso % (Auto) (0.0-1.5) % Neut # (Auto) (1.4-5.7) K/uL Lymph # (Auto) (0.6-2.4) K/uL [place] # (Auto) (0.0-0.8) K/uL Eos # (Auto) (0.0-0.7) K/uL Baso # (Auto) (0.0-0.1) K/uL Nucleated RBC % /100WBC Nucleated RBCs # K/uL Sodium (136-145) mmol/L Potassium (3.5-5.1) mmol/L Chloride (98-107) mmol/L Carbon Dioxide (21.0-32.0) mmol/L BUN (7.0-18.0) mg/dL Creatinine (0.6-1.0) mg/dL Est Cr Clr Drug Dosing Estimated GFR (MDRD) ml/min Glucose (74-106) mg/dL Lactic Acid (0.4-2.0) mmol/L Calcium (8.5-10.1) mg/dL Phosphorus (2.6-4.7) mg/dL Magnesium (1.8-2.4) mg/dL Total Bilirubin (0.2-1.0) mg/dL AST (15-37) IU/L ALT (14-63) IU/L Alkaline Phosphatase (46-116) U/L Troponin I (0.000-0.056) ng/mL Total Protein (6.4-8.2) g/dL Albumin (3.4-5.0) g/dL Globulin (2.6-4.0) g/dL Albumin/Globulin Ratio (0.9-1.6) Lipase (73-393) U/L Urine Color DARK YELLOW Urine Appearance CLEAR Urine pH 6.0 (5.0-8.0) Ur Specific [place] 1.025 (1.001-1.035) Urine Protein 100 H (NEGATIVE) mg/dL Urine Glucose (UA) NEGATIVE (NEGATIVE) mg/dL Urine Ketones TRACE H (NEGATIVE) mg/dL Urine Occult Blood TRACE-INTACT H (NEGATIVE) Urine Nitrite NEGATIVE (NEGATIVE) Urine Bilirubin NEGATIVE (NEGATIVE) Urine Urobilinogen 2.0 H (<2.0) EU/dL Ur Leukocyte Esterase NEGATIVE (NEGATIVE) Urine RBC 1-2 (0-2/HPF) Urine WBC 0-2 (0-5/HPF) Ur Epithelial Cells FEW (NONE-FEW) Urine Bacteria FEW (NEGATIVE) Urine Mucus LIGHT (NONE-MOD) Urine HCG, Qual NEGATIVE (NEGATIVE) Meds: Medications Generic Name Dose Route Start Last Admin Trade Name Coreyq PRN Reason Stop Dose Admin Vancomycin HCl 1.5 gm/ Premix 300 mls @ 200 mls/hr 12/11/20 23:00 IV 12/12/20 00:29 ONETIME ONE Lactated Ringer's 1,000 mls @ 999 mls/hr 12/11/20 23:48 Ringers, Lactated IV 12/12/20 00:48 .BOLUS ONE Sodium Chloride 10 ml 12/11/20 21:04 12/11/20 22:05 Sodium Chloride 0.9% 10 Ml Syringe FLUSH 10 ml ASDIRECTED PRN Administration Keep Vein Open Sodium Chloride 2.5 ml 12/11/20 21:04 12/11/20 22:06 Sodium Chloride 0.9% 2.5 Ml Syringe FLUSH 2.5 ml ASDIRECTED PRN Administration Keep Vein Open Discontinued Medications Generic Name Dose Route Start Last Admin Trade Name Coreyq PRN Reason Stop Dose Admin Lactated Ringer's 1,000 mls @ 999 mls/hr 12/11/20 21:04 12/11/20 21:36 Ringers, Lactated IV 12/11/20 22:04 999 mls/hr .BOLUS ONE Administration Lactated Ringer's 1,000 mls @ 999 mls/hr 12/11/20 22:33 Ringers, Lactated IV 12/11/20 23:33 .BOLUS ONE Piperacillin Sod/Tazobactam 100 mls @ 100 mls/hr 12/11/20 22:59 Sod 4.5 gm/ Sodium Chloride IV 12/11/20 23:58 ONETIME ONE Iopamidol 100 ml 12/11/20 23:23 12/11/20 23:25 Iopamidol 755 Mg/Ml 100 Ml Bottle IVPUSH 12/11/20 23:24 100 ml ONETIME ONE Administration Ondansetron HCl 4 mg 12/11/20 21:04 12/11/20 21:36 Ondansetron 4 Mg/2 Ml Sdv IVPUSH 12/11/20 21:05 4 mg ONETIME ONE Administration - Re-Assessments/Exams Free Text/Narrative Re-Assessment/Exam: 12/11/20 23:57 Case discussed with general surgery, Dr. Benji Storey recommends transfer to tertiary care center. 12/12/20 00:10 Patient will require transfer to outside facility for the need of higher level of care not available at this facility, and the need for production consultant services unavailable at this facility. Any emergency conditions have been stabilized to the ability of the ED prior to the transfer. Case was discussed and accepted by Dr. Palma at [facility], will accept levy ansfer. Epstein ([facility]) [phone]. Departure - Departure Time of Disposition: 00:07 Disposition: DC/Tfer to Acute Hospital 02 Condition: Serious Clinical Impression: Sepsis, Partial small bowel obstruction, Acute appendicitis with rupture, Abscess of appendix, Pneumonia, Cerebral palsy, Autism - Discharge Information *PRESCRIPTION DRUG MONITORING PROGRAM REVIEWED*: Not Applicable *COPY OF PRESCRIPTION DRUG MONITORING REPORT IN PATIENT KYM: Not Applicable Instructions: Appendicitis, Adult, Bowel Obstruction, [id number] Referrals: PCP,None [Primary Care Provider] - Forms: ED Department Discharge Critical Care Note - Critical Care Note Total Time (mins): 45 Comments: CRITCAL CARE: The high probability of sudden, clinically significant deterioration in the patient's condition required the highest level of my preparedness to intervene urgently. The services I provided to this patient were to treat and/or prevent clinically significant deterioration. Services included the following: chart data review, r eviewing nursing notes and/or old charts, documentation time, production consultant collaboration regarding findings and treatment options, medication orders and management, direct patient care, vital sign assessments and ordering, interpreting and reviewing diagnostic studies/lab tests. Aggregate critical care time includes only time during which I was engaged in work directly related to the patient's care, as described above, whether at the bedside or elsewhere in the Emergency Department. It did not include time spent performing other reported procedures or the services of residents, students, nurses or physician assistants. Frequent interventions and/or frequent repeat evaluations were required as well as counseling and coordination of care regarding prognosis, treatments, and discussions with patient, staff and consultants. Critical Care (excluding other procedures): 45 minutes Sepsis Event Note (ED) - Evaluation Sepsis Screening Result: No Definite Risk Current Stage of Sepsis: Sepsis Possible Source of Sepsis: Pulmonary - Focused Exam Sepsis Event Note Statement: Focused Sepsis Exam Completed Vital Signs: Vital Signs Temp Temp Pulse Pulse Resp BP Pulse Ox 12/11/20 21:51 98.3 F 125 H 124 H 97/77 95 12/11/20 20:56 99.0 F 127 H 134 H 24 H 149/103 H 96 - My Orders Last 24 Hours: My Active Orders 12/11/20 Dinner NPO [Nothing Per Oral Diet] [DIET] 12/11/20 21:04 Cardiac Monitoring [RC] . DIRECTED Pulse Oximetry [RC] ASDIRECTED Sodium Chloride 0.9% [Saline Flush] 10 ml FLUSH ASDIRECTED PRN Sodium Chloride 0.9% [Saline Flush] 2.5 ml FLUSH ASDIRECTED PRN Saline Lock Insert [OM.PC] Stat 12/11/20 21:05 EKG Documentation Completion [RC] STAT 12/11/20 22:32 Blood Culture x2 Reflex Set [OM.PC] Stat 12/11/20 22:42 CULTURE BLOOD [BC] Stat 12/11/20 22:52 CULTURE BLOOD [BC] Stat 12/11/20 23:00 VANCOmycin 1.5 GM/300 ML 1.5 gm Premix Bag 1 bag IV ONETIME 12/11/20 23:48 Lactated Ringers [Ringers, Lactated] 1,000 ml IV .BOLUS 12/11/20 23:58 CORONAVIRUS COVID-19 MEHRAN [MOLEC] Stat 12/12/20 00:06 Urinary Catheter Assessment [RC] ASDIRECTED 12/12/20 00:15 Insert Taylor Catheter [Insert Urinary Catheter] [OM.PC] Q24H - Assessment/Plan Last 24 Hours: My Active Orders 12/11/20 Dinner NPO [Nothing Per Oral Diet] [DIET] 12/11/20 21:04 Cardiac Monitoring [RC] . DIRECTED Pulse Oximetry [RC] ASDIRECTED Sodium Chloride 0.9% [Saline Flush] 10 ml FLUSH ASDIRECTED PRN Sodium Chloride 0.9% [Saline Flush] 2.5 ml FLUSH ASDIRECTED PRN Saline Lock Insert [OM.PC] Stat 12/11/20 21:05 EKG Documentation Completion [RC] STAT 12/11/20 22:32 Blood Culture x2 Reflex Set [OM.PC] Stat 12/11/20 22:42 CULTURE BLOOD [BC] Stat 12/11/20 22:52 CULTURE BLOOD [BC] Stat 12/11/20 23:00 VANCOmycin 1.5 GM/300 ML 1.5 gm Premix Bag 1 bag IV ONETIME 12/11/20 23:48 Lactated Ringers [Ringers, Lactated] 1,000 ml IV .BOLUS 12/11/20 23:58 CORONAVIRUS COVID-19 MEHRAN [MOLEC] Stat 12/12/20 00:06 Urinary Catheter Assessment [RC] ASDIRECTED 12/12/20 00:15 Insert Taylor Catheter [Insert Urinary Catheter] [OM.PC] Q24H
[2020-12-11 22:16] LABS: BLOOD UREA NITROGEN,BUN 19 mg/dL (7.0-18.0); CARBON DIOXIDE,CO2 25.4 mmol/L (21.0-32.0); CHLORIDE,CL 99 mmol/L (98-107); GLUCOSE RANDOM 149 mg/dL (74-106); LIPASE 80 U/L (73-393); POTASSIUM,K 3.5 mmol/L (3.5-5.1); SODIUM,NA 137 mmol/L (136-145)
[2020-12-11] MEDS ORDERED: Piperacillin/Tazobactam 4.5 GM in Sodium Chloride 0.9% 100 ML IV ONE (22:59)
[2020-12-11] MEDS ORDERED: VANCOmycin 1.5 GM/300 ML 1.5 GM in Premix Bag 1 BAG IV ONE (23:00)
--- NOTE | 2020-12-11 23:05 | CR ---
INDICATION: Pain after injury. COMPARISON: None available. FINDINGS: AP, lateral and oblique views of the left ankle were obtained for a total of three views. There is no sign of fracture or dislocation. The ankle mortise is intact. The talar dome is intact. A medium caliber wire is seen from fusion of the 1st proximal and distal phalanges. There is no sign of a joint effusion. There is prominent medial soft tissue swelling. There is mild diffuse soft tissue swelling elsewhere in the ankle. No degenerative changes are seen. IMPRESSION: Sign of acute osseous injury. Severe medial soft tissue swelling with mild soft tissue swelling throughout the rest of the ankle. Dictated by Kunal Horvath MD @ 12/11/2020 11:03:[address] Kunal Horvath @ Dec 11 2020 11:03PM
--- NOTE | 2020-12-11 23:13 | CR ---
INDICATION: Injury. Pain. COMPARISON: None available. FINDINGS: Erect and supine films of the abdomen were obtained. There is a large amount of gas in the colon and a mild amount of gas in the distal small bowel, suggesting an early ileus. This results in prominent elevation of the hemidiaphragms, and there is crowding of lung markings and mild atelectasis in the right lung base. There is no sign of any free air. There is mild scoliosis of the thoracolumbar spine convex towards the right. There are dysplastic hips, with shallow, broad acetabuli and superior subluxation of the femoral heads. IMPRESSION: Large amount of gas distributed throughout the colon with mild gas in the nondistended distal small bowel, suggesting an early ileus. The large amount of gas results in shallow inspiration with crowding of the lung markings and mild atelectasis in right lung base. Dictated by Kunal Horvath MD @ 12/11/2020 11:11:[address] Kunal Horvath @ Dec 11 2020 11:11PM
[2020-12-11] MEDS ORDERED: Iopamidol 755 Mg/ML 100 ML Bottle IVPUSH ONE (23:23)
--- NOTE | 2020-12-12 00:01 | CT ---
INDICATION: Abdominal pain with distention. Limited cooperation. COMPARISON: Plain films of the abdomen from today. TECHNIQUE: CT examination of the abdomen and pelvis was performed with the uneventful intravenous administration of 100 cc of Isovue 370 while 2.5 mm thick axial sections were obtained from the lung bases through the pubic symphysis. Oral contrast was not administered. Please note that all CT scans at this facility use dose modulation, iterative reconstruction, and/or weight-based dosing when appropriate to reduce radiation dose to as low as reasonably achievable. FINDINGS: There is moderate gaseous distention of the stomach. There is moderate dilatation of the small bowel extending to the terminal ileum. The right colon is distended as well, with distension reaching left transverse colon. The left colon from the splenic flexure through the rectum is non distended. The findings suggest an ileus, with no sign of obstructing lesion in the splenic flexure. Recommend correlation with the clinical exam. There is a complex fluid and air collection in the right lower quadrant adjacent to the prominently inflamed appendix which measures 12 millimeters in diameter adjacent to a prominent appendicular. The fluid collection measures approximately 4.5 x 3.2 centimeters in diameter, best seen on axial image 139 series 201. The findings are that of acute ruptured appendicitis with abscess formation. There is a small amount of free fluid in the right pericolic gutter. There is a moderate amount of free fluid in the pelvis. There is no sign of any additional extraluminal air. There is no sign of any free air in the abdomen or pelvis. In the abdomen, the liver, spleen, pancreas, and adrenals are normal in appearance. The kidneys are normal in appearance. The gallbladder is normal in appearance. The abdominal aorta is normal in caliber with no sign of dilatation. There is no sign of retroperitoneal mass or adenopathy. In the pelvis, the rectum and sigmoid are nondistended. There is a moderate amount of fecal material in the rectum and appendix consistent with constipation. The uterus and adnexal regions are normal in appearance. The urinary bladder contains a Taylor catheter and is empty. There is no sign of pelvic or inguinal mass or adenopathy. There is prominent consolidation of the right posterior lower lobe at the lung base and the inferior posterior right middle lobe at the lung base. These are probably areas of atelectasis related to prominent distention of the small bowel and right colon. There is mild atelectasis of the posterior-medial left lung base as well. There are shallow, dysplastic acetabuli with mildly dysplastic femoral heads displaced superiorly in the acetabuli. There is normal bone density. There is minimal scoliosis of the thoracic spine convex towards the left. I discussed the findings with Dr. Howard at 2350 hours on 12/11/2020. IMPRESSION: Ruptured appendix with periappendiceal abscess measuring approximately 4.5 x 3.2 centimeters. Appendix dilated at 11 millimeters with wall thickening and a prominent periappendiceal inflammatory reaction. Mild amount of free fluid in the right pericolic gutter and moderate amount of free fluid in the pelvis, probably related to ruptured appendix. No sign of any free air. Prominent small-bowel and right colonic ileus. CT of the abdomen shows moderate distention of the stomach related to the partial small bowel obstruction. Moderate atelectasis of the inferior portions of the right middle and lower lobes adjacent to the hemidiaphragm related to abdominal distention from ileus. CT of the pelvis shows satisfactory position of a Taylor catheter. Dysplastic hips bilaterally. Please note that all CT scans at this facility use dose modulation, iterative reconstruction, and/or weight-based dosing when appropriate to reduce radiation dose to as low as reasonably achievable. Dictated by Kunal Horvath MD @ 12/11/2020 11:59:[address] Kunal Horvath @ Dec 11 2020 11:59PM
[2020-12-12] MEDS ORDERED: fentaNYL 50 MCG/ML SDV IVPUSH ONE (00:42)
[2020-12-12] MEDS ORDERED: LORazepam 2 MG/ML SDV IVPUSH ONE (01:02)
== END 2020-12-12 01:30 ==
LOC: MW.ED 20:54
DX: A41.9 Sepsis, unspecified organism (principal); J18.9 Pneumonia, unspecified organism; K35.33 Acute appendicitis with perforation, localized peritonitis, and gangrene, with abscess; K56.600 Partial intestinal obstruction, unspecified as to cause; G80.9 Cerebral palsy, unspecified; F84.0 Autistic disorder; Z88.6 Allergy status to analgesic agent; Z79.899 Other long term (current) drug therapy; Z20.822 Contact with and (suspected) exposure to COVID-19
CPT/HCPCS: 36415; 51702; 73610; 74022; 74177; 80053; 81001; 81025; 83605; 83690; 83735; 84100; 84484; 85025; 87040; 87635; 93005; 96365; 96375; 99285; J2060; J2405; J2543; J3010; J3370; J7120; Q9967; U0002

== ENCOUNTER 2024-07-26 14:18 | Emergency (ER) | payer MEDICAID | END 2024-07-26 16:07 | disposition home or self-care (01) | LOC: MW.ED 14:18 | DX: L03.115 Cellulitis of right lower limb (principal); Z88.5 Allergy status to narcotic agent; Z79.899 Other long term (current) drug therapy; Z75.8 Other problems related to medical facilities and other health care | CPT/HCPCS: 99283 ==